=== PATIENT | female | born 1960 | race Caucasian/White ===

== ENCOUNTER 2023-01-20 09:39 | Outpatient (AMB) | payer MEDICARE, MEDICAID, SELFPAY ==
--- NOTE | 2023-01-20 09:44 | HO.NEPHOV_ITS ---
HPI HPI Comments History of Present Illness Details I had the privilege of seeing Nicho in follow-up of her hypertension. She has not been on any medication. She underwent carotid ultrasound as well as calcium score testing of her coronaries. She thinks she has some plaques in the coronary and has narrowing of her carotid artery. She has not seen her mechanical engineering coop with home she has an appointment coming up. She had taken statins in the past but could not tolerate the side effects. Her blood pressure continues to remain fluctuant. She has gained some weight. She was wondering whether taking some CBD is going to help with her blood pressure. She does not have any chest pain, shortness of breath, proximal nocturnal dyspnea, orthopnea, pedal edema, orthostatic symptoms, palpitation, urinary symptoms. She has not been taking any excess sodium in the diet nor any anti-inflammatory medications. She denied any other systemic symptoms. [facility] Medical History (Updated 01/20/23 @ 10:22 by Cameron Clemente MD) Hypertension Surgical History (Updated 01/20/23 @ 09:49 by Minerva Morales MA) Hx of tonsillectomy Family History (Updated 01/20/23 @ 09:50 by Minerva Morales MA) Mother Heart disease Kidney disease Father Cancer Brother Diabetes Social History Alcohol intake: current Comment: On occasion Patient Tobacco Use Status: Never used Tobacco Vital Signs 01/20/23 09:45 01/20/23 10:23 Height 5 ft 2 in Weight 134 lb BMI 24.5 BP 154/94 H 150/90 H Blood Pressure Location Rt brachial Position Sitting Pulse 75 Pulse Source Pulse Oximeter Pulse Oximetry (%) 97 Oxygen Delivery Method Room Air Physical Exam Vital Signs: Last Vital Signs Pulse 75 01/20/23 09:45 BP 154/94 H 01/20/23 09:45 Pulse Ox 97 01/20/23 09:45 Oxygen Delivery Method Room Air 01/20/23 09:45 BMI result Body Mass Index 24.5 Const General: comfortable and no acute distress Orientation/consciousness: patient oriented x3 HEENT Head: Yes normocephalic Mouth: Normal oral and palatal mucosa present Eyes EOM: EOMs intact bilaterally Neck Neck: Yes supple Resp Auscultation: clear to auscultation bilaterally Cardio Jugular venous distension: no JVD Rate: regular rate GI Palpation (GI): Soft to palpation Auscultation: normal bowel sounds General: Yes no CVA tenderness Back/Spine/Pelvis Back: no CVA tenderness Skin General skin exam: no rashes or lesions noted Neuro General: patient oriented x3 and moves all extremities Extrem General: Yes no pedal edema Assessment & Plan Assessment & Plan (1) Hypertension: Code(s): I10 - Essential (primary) hypertension Qualifiers: Hypertension type: unspecified Qualified Code(s): I10 - Essential (primary) hypertension Plan Sara had extensive investigations in the past and was thought to have significant white coat element. She has gained weight. Her repeat blood pressure in the office by me was 150/90 mmHg both arms sitting position. She is going to follow-up with her mechanical engineering coop to talk about carotid ultrasound and calcium scores of her coronary arteries. She is going to work on losing some weight. I have ordered blood work and Doppler of her renal arteries. She may have to start antihypertensive medications at her next visit with me in 3 months if her blood pressure control is not at goal . Time spent retrieving data, patient encounter and documentation 23 minutes. Follow-up given. Orders: Orders US renal doppler Today I10 - Essential (primary) hypertension Electrolytes Today I10 - Essential (primary) hypertension Blood Urea Nitrogen Today I10 - Essential (primary) hypertension Creatinine Today I10 - Essential (primary) hypertension Calcium Today I10 - Essential (primary) hypertension US renal BI Today I10 - Essential (primary) hypertension Coding Level of Care Code Est Pt Level 4 (58766) Diagnoses Hypertension, unspecified type I10 Hypertension type: unspecified Results Reviewed Nephrology Results: No Data to Display
[2023-01-20 09:45] VITALS: BP 154/94; PULSE 75; O2SAT 97; BMI 24.5
[2023-01-20 10:23] VITALS: BP 150/90
== END 2023-01-20 10:18 | disposition home or self-care (01) ==
PROVIDERS: PCP Nurse Practitioner Adult Health; Visit Provider Internal Medicine Nephrology
DX: I10 Essential (primary) hypertension (principal)
CPT/HCPCS: 99214

== ENCOUNTER → 2023-01-20 09:39 | Outpatient (BNVA) | payer MEDICARE, MEDICAID, SELFPAY | PROVIDERS: PCP Nurse Practitioner Adult Health; Visit Provider Internal Medicine Nephrology | DX: I10 Essential (primary) hypertension (principal) | CPT/HCPCS: 99212 ==

== ENCOUNTER 2023-02-24 09:06 | Outpatient (REF) | payer MEDICARE, MEDICAID, SELFPAY ==
--- NOTE | ~2023-02-24 | US_ITS ---
EXAMINATION: ULTRASOUND RENAL WITH DOPPLER CLINICAL INFORMATION: Hypertension. Evaluate for renal artery stenosis. COMPARISON: None. TECHNIQUE: Real-time grayscale, color Doppler, and duplex Doppler evaluation of the kidneys and renal vasculature was performed. FINDINGS: RENAL MEASUREMENTS: Right: 10.0 x 4.1 x 5.4 cm (Sag x AP x TV) Left: 9.8 x 4.4 x 5.2 cm (Sag x AP x TV) The renal parenchyma appears normal. No hydronephrosis or nephrolithiasis. DOPPLER INTERROGATION: AORTA: Mid aorta: 76 cm/sec RIGHT MAIN RENAL ARTERY: Proximal: 128 cm/sec Mid: 276 cm/sec Distal: 184 cm/sec LEFT MAIN RENAL ARTERY: Proximal: 126 cm/sec Mid: 87 cm/sec Distal: 70 cm/sec RENAL-AORTIC RATIO (RAR): Right: 3.6 Left: 1.7 SEGMENTAL RESISTIVE INDICES: Right: 0.57-0.62 Left: 0.64-0.70 RENAL VEINS: Right: Patent with normal waveform. Left: Patent with normal waveform. US/US renal BI IMPRESSION: Elevated velocity in the mid right renal artery with RAR of 3.6 consistent with a greater than 60% stenosis by Doppler criteria. Recommend further evaluation with CTA of the abdomen and pelvis without and with contrast.
--- NOTE | ~2023-02-24 | US_ITS ---
EXAMINATION: ULTRASOUND RENAL WITH DOPPLER CLINICAL INFORMATION: Hypertension. Evaluate for renal artery stenosis. COMPARISON: None. TECHNIQUE: Real-time grayscale, color Doppler, and duplex Doppler evaluation of the kidneys and renal vasculature was performed. FINDINGS: RENAL MEASUREMENTS: Right: 10.0 x 4.1 x 5.4 cm (Sag x AP x TV) Left: 9.8 x 4.4 x 5.2 cm (Sag x AP x TV) The renal parenchyma appears normal. No hydronephrosis or nephrolithiasis. DOPPLER INTERROGATION: AORTA: Mid aorta: 76 cm/sec RIGHT MAIN RENAL ARTERY: Proximal: 128 cm/sec Mid: 276 cm/sec Distal: 184 cm/sec LEFT MAIN RENAL ARTERY: Proximal: 126 cm/sec Mid: 87 cm/sec Distal: 70 cm/sec RENAL-AORTIC RATIO (RAR): Right: 3.6 Left: 1.7 SEGMENTAL RESISTIVE INDICES: Right: 0.57-0.62 Left: 0.64-0.70 RENAL VEINS: Right: Patent with normal waveform. Left: Patent with normal waveform. US/US renal doppler IMPRESSION: Elevated velocity in the mid right renal artery with RAR of 3.6 consistent with a greater than 60% stenosis by Doppler criteria. Recommend further evaluation with CTA of the abdomen and pelvis without and with contrast.
== END 2023-02-24 09:07 | disposition home or self-care (01) ==
LOC: HO.US 09:06
PROVIDERS: PCP Nurse Practitioner Adult Health; Visit Provider Internal Medicine Nephrology
DX: I10 Essential (primary) hypertension (principal)
CPT/HCPCS: 36415; 76775; 80051; 82310; 82565; 84520; 93975

== ENCOUNTER 2023-02-24 09:42 | Outpatient (REF) | payer MEDICARE, MEDICAID, SELFPAY ==
[2023-02-24 10:50] LABS: Anion Gap 11 (12-20); Blood Urea Nitrogen 8 mg/dL (9-16); Calcium 9.6 mg/dL (8.4-10.2); Carbon Dioxide 30 mmol/L (22-29); Chloride 102 mmol/L (96-108); Estimated Glomerular Filt Rate > 60; Potassium 4.1 mmol/L (3.3-5.1); Sodium 139 mmol/L (135-145)
== END 2023-02-24 09:43 | disposition home or self-care (01) ==
LOC: HO.10HDL 09:42
PROVIDERS: Visit Provider Internal Medicine Nephrology
DX: Z13.89 Encounter for screening for other disorder (principal)
CPT/HCPCS: 36415; 80051; 82310; 82565; 84520

== ENCOUNTER → 2023-04-26 12:00 | Outpatient (BNVA) | payer MEDICARE, MEDICAID, SELFPAY | PROVIDERS: PCP Nurse Practitioner Adult Health; Visit Provider Internal Medicine Nephrology | DX: I10 Essential (primary) hypertension (principal) | CPT/HCPCS: 99212 ==

== ENCOUNTER 2024-03-22 12:08 | Outpatient (AMB) | payer MEDICARE, SELFPAY ==
--- NOTE | 2024-03-22 12:26 | HO.NEPHOV ---
Vital Signs 03/22/24 12:28 Height 5 ft 2 in Weight 135 lb 4 oz BMI 24.7 BP 144/80 H Blood Pressure Location Lt brachial Position Sitting Pulse 76 Pulse Source Pulse Oximeter Pulse Oximetry (%) 97 Oxygen Delivery Method Room Air Intake Visit Reasons: Hypertension/ 6 MO FU/ Conf Electroneurodiagnostic Technologist Required: No Accompanied by: Self / Same As Patient Allergies COVID-19 (SARS-CoV-2) vaccine, nora Allergy (Verified 03/22/24 12:28) Unknown morphine Adverse Reaction (Verified 03/22/24 12:28) Unknown HPI Comments Details: I had the privilege of seeing Maureen in follow-up of her hypertension. She has not been on any medication. She underwent carotid ultrasound as well as calcium score testing of her coronaries. She thinks she has some plaques in the coronary and has narrowing of her carotid artery. She had taken statins in the past but could not tolerate the side effects. Her blood pressure is better at home. She does not have any chest pain, shortness of breath, proximal nocturnal dyspnea, orthopnea, pedal edema, orthostatic symptoms, palpitation, urinary symptoms. She has not been taking any excess sodium in the diet nor any anti-inflammatory medications. She denied any other systemic symptoms. [facility] Medical History (Updated 01/20/23 @ 10:22 by Cameron Clemente MD) Hypertension Surgical History Hx of tonsillectomy Family History Mother Heart disease Kidney disease Father Cancer Brother Diabetes Social History Alcohol intake: current Comment: On occasion Patient Tobacco Use Status: Never used Tobacco Review of Systems Const All systems reviewed & are unremarkable except as noted in HPI and below Physical Exam Vital Signs: Last Vital Signs Pulse 76 03/22/24 12:28 BP 144/80 H 03/22/24 12:28 Pulse Ox 97 03/22/24 12:28 Oxygen Delivery Method Room Air 03/22/24 12:28 BMI result Body Mass Index 24.7 Const General: comfortable and no acute distress Orientation/consciousness: patient oriented x3 HEENT Head: Yes normocephalic Mouth: Normal oral and palatal mucosa present Eyes EOM: EOMs intact bilaterally Neck Neck: Yes supple Resp Auscultation: clear to auscultation bilaterally Cardio Jugular venous distension: no JVD Rate: regular rate GI Palpation (GI): Soft to palpation Auscultation: normal bowel sounds General: Yes no CVA tenderness Back/Spine/Pelvis Back: no CVA tenderness Skin General skin exam: no rashes or lesions noted Neuro General: patient oriented x3 and moves all extremities Extrem General: Yes no pedal edema Assessment & Plan Assessment & Plan (1) Hypertension: Code(s): I10 - Essential (primary) hypertension Category: Medical Qualifiers: Hypertension type: unspecified Qualified Code(s): I10 - Essential (primary) hypertension Plan Sara had extensive investigations in the past and was thought to have significant white coat element. Her repeat blood pressure stable. She is going to follow-up with her wire photo operator news to talk about carotid ultrasound and calcium scores of her coronary arteries. She is going to work on losing some weight. Doppler of her renal arteries showed elevated velocity in the mid right renal artery with RAR of 3.6 consistent with a greater than 60% stenosis by Doppler criteria. Further evaluation with CTA of the abdomen and pelvis without and with contrast is planned in one year. She may have to start antihypertensive medications if her blood pressure control is not at goal . Coding Level of Care Code Est Pt Level 4 (96377) Diagnoses Hypertension, unspecified type I10 Hypertension type: unspecified
[2024-03-22 12:28] VITALS: BP 144/80; PULSE 76; O2SAT 97; BMI 24.7
--- OUTSIDE RECORDS SUMMARY | 2024-03-22 12:42 | XMS_ITS | Encounter Summary ---
Author Organization [facility] Address [address] [place] [address] Care Team Providers Care Electrifier Operator Name Role Phone Matheus Mejia Primary Care Provider Encounter Details Date Type Department Care Team (Latest Contact Info) Description 07/31/2018 Abstract [facility] CONVERSIONS Dental, Provider, DDS Social History Tobacco Use Types Packs/Day Years Used Date Smoking Tobacco: Never Assessed Comments Unknown Sex and Gender Information Value Date Recorded Sex Assigned at Not on file Legal Sex Female 8:38 PM EST Gender Identity Female 12/17/2021 8:38 PM EST Sexual Orientation Straight 12/17/2021 8: 38 PM EST documented as of this encounter Plan of Treatment Not on file documented as of this encounter Visit Diagnoses Not on filedocumented in this encounter Care Teams Electrifier Operator Relationship Specialty Start Date End Date Matheus Mejia LLD [address] [place] [id number] PCP - General Dentist 12/03/21 documented as of this encounter
--- OUTSIDE RECORDS SUMMARY | 2024-03-22 12:42 | XMS_ITS | Clinical Summary ---
Author Organization [employer] Address [address] [facility] [address] [place] [address] Care Team Providers Care Well Drill Operator Helper Cable Tool Name Role Phone Matheus Mejia Primary Care Provider [phone] Social History Tobacco Use Types Packs/Day Years Used Date Smoking Tobacco: Never Assessed Comments Unknown Sex and Gender Information Value Date Recorded Sex Assigned at Not on file Legal Sex Female 8:38 PM EST Gender Identity Female 12/17/2021 8:38 PM EST Sexual Orientation Straight 12/17/2021 8: 38 PM EST Plan of Treatment Health Maintenance Due Date Last Done Comments CT Colonography 1958 Colonoscopy 1958 Depression Screening 1958 FIT 1958 FOBT 1958 Sigmoidoscopy 1958 Alcohol/Substance Use Screening 1970 Tobacco Screening 1970 Pneumococcal Vaccine: 50+ Years (1 of 1 - PCV) 01/25/2008 Zoster Vaccines (1 of 2) 01/25/2008 Colorectal Cancer Screening 04/08/2022 FIT DNA/Cologuard 04/08/2022 04/09/2019 COVID-19 Vaccine (3 - 2023-2 5 season) 2023 05/31/2020, 05/09/2020 Influenza Vaccine (#1) 2023 Mammogram 09/07/2024 09/07/2022 Cervical Cancer Screening 01/28/2028 HPV/Cotest 01/28/2028 Pap Smear 01/28/2028 01/27/2023 DTaP/Tdap/Td Vaccines (3 - T d or Tdap) 11/17/2030 11/17/2020, 08/14/2015 RSV Patients and Patients Aged 60 years or older (1 - 1-dose 75+ series) 2033 HIB Vaccines Aged Out No longer eligi ble based on patient's age to complete this topic HPV Vaccines Aged Out No longer eligi ble based on patient's age to complete this topic Hepatitis A Vaccines Aged Out No long er eligible based on patient's age to complete this topic Hepatitis B Vaccines Aged Out No long er eligible based on patient's age to complete this topic IPV Vaccines Aged Out No longer eligi ble based on patient's age to complete this topic Meningococcal Vaccine Aged Out No quique jim eligible based on patient's age to complete this topic RSV under 20 months Aged Out No longe r eligible based on patient's age to complete this topic Rotavirus Vaccines Aged Out No longer eligible based on patient's age to complete this topic Procedures Procedure Name Priority Date/Time Associated Diagnosis Comments PAP SMEAR Routine 01/27/2023 12:00 AM EST HM MAMMOGRAPHY Routine 09/07/2022 from Last 3 Months or Most Recently Relevant to Health Maintenance Results * Pap Smear (01/27/2023 12:00 AM EST) Swab Historical Provider LAB CYTOLOGY ORDERABLES F inal Result [facility] [address] [place] [address] * Mammography (09/07/2022) Mammogram BIRADS 1 Normal, Abnormal, BIRADS 1 , BIRADS 2 Anatomical Region Laterality Modality Other Historical Provider HEALTH MAINTENANCE Final Result from Last 3 Months or Most Recently Relevant to Health Maintenance Care Teams Well Drill Operator Helper Cable Tool Relationship Specialty Start Date End Date Matheus Mejia LLD [address] [place] [id number] PCP - General Dentist 12/03/21
--- OUTSIDE RECORDS SUMMARY | 2024-03-22 12:42 | XMS_ITS | Clinical Summary ---
Author Organization [facility] Address [address] [place] [address] Phone Care Team Providers Care Dialysis Social Worker Name Role Phone Savanna Gipson RICARDO Primary Care Provide r Allergies Active Allergy Reactions Criticality Noted Date Comments Adhesive Tape Rash Low 11/09/2021 Morphine Other (see comments) 08/13/2020 Statins Other (see comments) 02/21/2017 Medications latanoprost (XALATAN) 0.005 % ophthalmic solution Administer 1 drop into both eyes 1 (one) time each day 2 Active Active Problems Problem Noted Date Diagnosed Date Adult attention deficit hyperactivity disorder 0 06/16/2021 Overview (12/21/2021): Last Assessment & Plan: History of ADHD, recently prescribed Adderall. Her initial dose of 1.25 mg ineffective, so she will plan on trying a higher dose and follow-up as needed. Labile hypertension due to being in a clinical e nvironment 08/13/2020 Patient encounter status 03/31/2017 Overview (12/21/2021): Last Assessment & Plan: Generally well female, up-to-date on Pap smear, mammogram, and bone density testing. Cologuard in 2019 normal; repeat in 3 years. Patient declines immunizations; discussed risks versus benefits. Patient is due for Pap smear at the end of the year; she is connected with [facility] gynecology for routine gynecologic care. Advised on healthy diet, regular exercise, and to consume at least 1200 mg Calcium and 2000 iU Vitamin D daily by diet and/or supplementation. Essential hypertension 03/22/2017 Overview (08/13/2020): She states she has been treated with a variety of antihypertensive medications but that she is extremely sensitive to medications and is now being treated with clonidine twice a day. Because she is very sensitive to medications she is concerned about taking any lipid-lowering medications. Blood pressure today is 140/88. Last Assessment & Plan: Stable, off therapies. Normotensive in office today. She monitors her blood pressure regularly, with normotensive readings. Patient has had a lot of side effects to medications in the past, but has noted that if she stays warm her blood pressure tends to always be normal. Continue to monitor at home and follow-up if consistently greater than 140/80. 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 Lin for treatment and discussion of surgical options. Chronic low back pain 09/01/20202021 Overview (05/05/2021): Last Assessment & Plan: Agree with plan for physical therapy referral. Referral placed. Pain in thumb 09/01/2020 12/21/2021 Overview (05/05/2021): Last Assessment & Plan: Chronic thumb pain, with some improvement with recent course of occupational therapy. May consider referral to hand specialist if worsening in the future. Chronic pain 03/09/2019 08/13/2020 Overview (08/13/2020): Last Assessment & Plan: Will do referral to physical therapy for recommendations regarding stretching and exercises. Follow-up as needed. Right upper quadrant pain 03/09/2019 Overview (08/13/2020): Last Assessment & Plan: Episodes of sharp, transient right upper abdominal pain not associated with eating. No red flags on history, although some hardness noted along area of abdominal aortic. Will do further work-up with ultrasound of abdomen and follow-up by phone once results are back. Patient in agreement with plan. Vascular calcification 04/03/201708/13 Overview (08/13/2020): Last Assessment & Plan: By OSH US. -Will obtain Carotid US. Patent foramen ovale 03/31/2017 Overview (08/13/2020): Last Assessment & Plan: Documented as trace by JW in 05 in the setting of [facility]. We discussed that patent foramen ovale is a common finding ( 1 in 3 americans). In rare cases has been associated with stroke in young population. Denies new neurological symptoms. She is instructed to: 1.-No scubadiving. 2.-Aspirin when flying ( she is on daily asa). 3.-Filter IVs. Elevated Lipoprotein(a) 03/22/201709/2020 Overview (08/13/2020): Taylor is a 57-year-old woman with a history of hypertension, enlarged thyroid with thyroid nodule, family history of atherosclerosis self-referred for evaluation of elevated levels of lipoprotein a. She is currently in excellent overall health, is of normal weight, non-smoker, and follows an organic low-fat diet. Her mother had atherosclerosis and hyperlipidemia, her brother had an KS at age 50 and was a smoker. Because her mother had atherosclerosis the patient requested testing for lipoprotein a. Her value returned at 288 putting her in a high risk cohort. She was treated with Lipitor 10 milligrams and stopped this medication after 21 days due to dizziness and muscle cramping. She also complained of confusion and mental status changes which have resolved with discontinuation of the medication Of note, her lipid profile off medication is normal with an HDL of 88 and an LDL of 100. She saw a oncology rep specialist at [facility] and had a carotid ultrasound that reports her being at high risk for coronary artery disease but no evidence of atherosclerotic plaque (?). She states that she has had 2 episodes of chest pain at rest and It was suggested that she have a stress test performed but this was declined due to her concern about the imaging protocol. Physical exam was not carried out today due to the fact that the interview took an hour due to her many questions. Last Assessment & Plan: Off therapies, no stigmata of cardiac disease based on most recent work-up. Overdue for lipid panel testing, will do fasting cholesterol and follow-up by phone once results are back. Continue healthy eating and regular exercise. Follow-up with Dr. Randle of cardiology. Multinodular goiter 03/22/2017 08/14/19 21 Overview (08/13/2020): Patient has a history of a thyroid nodule that was biopsied 15 years ago. Recent outside study demonstrated an enlargement of the gland and a nodule measuring 3.6 cm x 2.9 cm x 1.7 cm. She will make an appointment with the thyroid clinic for further evaluation. Last Assessment & Plan: Stable based. Continue routine follow up with Dr. Mendoza of endocrinology. Immunizations Name Administration Dates Next Due Tdap 11/17/2020,08/14/2015 Family History Medical History Relation Comments Cancer Father lung Hypertension Father Heart disease Mother Hypertension Mother Kidney disease Mother Hypertension Sibling 1 Heart disease Sibling 2 Relation Status Comments Father Mother Alive Sibling 1 Sibling 2 Social History Tobacco Use Types Packs/Day Years Used Date Smoking Tobacco: Never Smokeless Tobacco: Never Tobacco Cessation:Counseling Given: No Alcohol Use Standard Drinks/Week Comments Yes 0 (1 standard drink = 0.6 oz pure alcohol) Alcoholic Drinks/day: Occasional social drink Comments Unknown Sex and Gender Information Value Date Recorded Sex Assigned at Not on file Legal Sex Female 4:49 PM EST Gender Identity Not on file Sexual Orientation Not on file Last Filed Vital Signs Vital Sign Reading Time Taken Comments Blood Pressure 128/70 12/22/2021 1:06 PM EST Pulse 71 12/22/2021 1:06 PM EST Temperature - - Respiratory Rate - - Oxygen Saturation 97% 12/22/2021 1:06 PM EST Inhaled Oxygen Concentration - - Weight 63 kg (138 lb 12.8 oz) 12/22/2021 1:06 PM EST Height 157.5 cm (5' 2 ) 02/19/2020 12:00 PM EST Body Mass Index 25.39 02/19/2020 12:00 PM EST Plan of Treatment Health Maintenance Due Date Last Done Comments Breast Cancer Screening 1958 Pneumococcal Vaccine: 65+ Ye ars (1 of 2 - PCV) 01/25/1964 Colorectal Cancer Screening: Annual FOBT 2007 Colorectal Cancer Screening: Colonoscopy 2007 Colorectal Cancer Screening: Sigmoidoscopy 2007 Influenza Vaccine (#1) 2023 Hepatitis B Vaccine Aged Out No longe r eligible based on patient's age to complete this topic Insurance [place]IC[place]ID [place] Care Teams Dialysis Social Worker Relationship Specialty Start Date End [place] [address] PCP - General Nurse Practitioner 05/05/21
== END 2024-03-22 12:45 | disposition home or self-care (01) ==
PROVIDERS: PCP Nurse Practitioner Adult Health; Visit Provider Internal Medicine Nephrology
DX: I10 Essential (primary) hypertension (principal)
CPT/HCPCS: 99214

== ENCOUNTER → 2024-03-22 12:08 | Outpatient (BNVA) | payer MEDICARE, SELFPAY | PROVIDERS: PCP Nurse Practitioner Adult Health; Visit Provider Internal Medicine Nephrology | DX: I10 Essential (primary) hypertension (principal) | CPT/HCPCS: 99212 ==

== ENCOUNTER 2025-01-31 13:38 | Outpatient (AMB) | payer MEDICARE, SELFPAY ==
[2025-01-31 13:42] VITALS: BP 148/100; PULSE 71; O2SAT 97; BMI 25.4
--- NOTE | 2025-01-31 13:42 | HO.NEPHOV ---
Vital Signs 01/31/25 13:42 Height 5 ft 2 in Weight 139 lb BMI 25.4 BP 148/100 H Blood Pressure Location Lt brachial Position Sitting Pulse 71 Pulse Source Pulse Oximeter Pulse Oximetry (%) 97 Oxygen Delivery Method Room Air Intake Visit Reasons: Hypertension r/s 11/22-LVM Wilderness Guide Required: No Accompanied by: Self / Same As Patient Allergies COVID-19 (SARS-CoV-2) vaccine, nora Allergy (Verified 01/31/25 13:43) Unknown morphine Adverse Reaction (Verified 01/31/25 13:43) Unknown HPI Comments Details: I had the privilege of seeing Maureen in follow-up of her hypertension. She has not been on any medication. She had underwent carotid ultrasound as well as calcium score testing of her coronaries. She thinks she has some plaques in the coronary and has narrowing of her carotid artery. She had taken statins in the past but could not tolerate the side effects. Her blood pressure is better at home. She does not have any chest pain, shortness of breath, proximal nocturnal dyspnea, orthopnea, pedal edema, orthostatic symptoms, palpitation, urinary symptoms. She has not been taking any excess sodium in the diet nor any anti-inflammatory medications. She denied any other systemic symptoms.She was started on losartan by PCP and she stopped it. [facility] Medical History (Updated 01/20/23 @ 10:22 by Cameron Clemente MD) Hypertension Surgical History Hx of tonsillectomy Family History Mother Heart disease Kidney disease Father Cancer Brother Diabetes Social History Alcohol intake: current Comment: On occasion Patient Tobacco Use Status: Never used Tobacco Review of Systems Const All systems reviewed & are unremarkable except as noted in HPI and below Physical Exam Vital Signs: Last Vital Signs Pulse 71 01/31/25 13:42 BP 148/100 H 01/31/25 13:42 Pulse Ox 97 01/31/25 13:42 Oxygen Delivery Method Room Air 01/31/25 13:42 BMI result Body Mass Index 25.4 Const General: comfortable and no acute distress Orientation/consciousness: patient oriented x3 HEENT Head: Yes normocephalic Mouth: Normal oral and palatal mucosa present Eyes EOM: EOMs intact bilaterally Neck Neck: Yes supple Resp Auscultation: clear to auscultation bilaterally Cardio Jugular venous distension: no JVD Rate: regular rate Heart sounds: Murmur heart sound present GI Palpation (GI): Soft to palpation Auscultation: normal bowel sounds General: Yes no CVA tenderness Back/Spine/Pelvis Back: no CVA tenderness Skin General skin exam: no rashes or lesions noted Neuro General: patient oriented x3 and moves all extremities Extrem General: Yes no pedal edema Results Reviewed Nephrology Results: Sodium, (135-145) 139 mmol/L 02/24/23 Potassium, (3.3-5.1) 4.1 mmol/L 02/24/23 Chloride, (96-108) 102 mmol/L 02/24/23 Carbon Dioxide, (22-29) 30 mmol/L H 02/24/23 BUN, (9-16) 8 mg/dL L 02/24/23 Creatinine, (0.5-1.4) 0.87 mg/dL 02/24/23 Calcium, (8.4-10.2) 9.6 mg/dL 02/24/23 Renal US 02/24/23 Assessment & Plan Assessment & Plan (1) Hypertension: Code(s): I10 - Essential (primary) hypertension Category: Medical Qualifiers: Hypertension type: unspecified Qualified Code(s): I10 - Essential (primary) hypertension Plan Sara had extensive investigations in the past and was thought to have significant white coat element. Her repeat blood pressure stable. She is going to work on losing some weight. Doppler of her renal arteries showed elevated velocity in the mid right renal artery with RAR of 3.6 consistent with a greater than 60% stenosis by Doppler criteria. Further evaluation with CTA of the abdomen and pelvis without and with contrast is planned in one year. I started her on lisinopril 2.5 mg daily. If her blood pressure control is not at goal, we may have to increase ACEI . Labs/FU 6 M Orders: Orders Blood Urea Nitrogen 3 Months I10 - Essential (primary) hypertension Electrolytes 3 Months I10 - Essential (primary) hypertension Creatinine 3 Months I10 - Essential (primary) hypertension Medications: New lisinopril 2.5 mg PO DAILY 90 tabs 4RF Coding Level of Care Code Est Pt Level 4 (85071) Diagnoses Hypertension, unspecified type I10 Hypertension type: unspecified
--- OUTSIDE RECORDS SUMMARY | 2025-01-31 13:42 | XMS_ITS | Encounter Summary ---
Author Organization [facility] Address [address] [facility] [address] [place] [address] Phone Care Team Providers Care Medical Clerical Assistant Name Role Phone Savanna Gipson CNP Primary Care Provider Fay Alfonso MD Unavailable [phone] Encounter Details Date Type Department Care Team ([facility] Contact Info) Description 11/22/2023 Telephone [facility] [address] [place] [address] Noe Macias MD, PhD [address] [place] [address] [email or web address] Social History Tobacco Use Types Packs/Day Years Used Date Smoking Tobacco: Never Smokeless Tobacco: Never Alcohol Use Standard Drinks/Week Comments Yes 3 (1 standard drink = 0.6 oz pur e alcohol) Child or Family Care Answer Date Record ed Do you have problems with on e of the following making it difficult for you to work, study, or receive health care? No 07/03/2020 Education Answer Date Recorded Are you interested in more education? Not on jose e 07/04/2022 Are you concerned about learning? Not on file 07/04/2022 No 07/04/2022 No 07/04/2022 Food Answer Date Recorded Within the past 6 months we worried whether our food would run out before we got money to buy more. Never True 07/03/2020 Within the past 6 months the food we bought just didn't last and we didn't have enough money to get more. Never True Residential Stability Answer Date Recor ded What is your housing situation today? I have araceli tello 07/03/2020 How many times have you move d in the past 12 months? Zero (I did not move) 07/03/2020 06 Are you worried that in t he next 2 months, you may not have your own housing to live in? No 07/03/2020 Paying for Meds Answer Date Recorded Do you have trouble paying for medicines? No 07/03/2020 Paying Utility Bills Answer Date Record ed Do you have trouble paying your heating or elect ricity bill? No 07/03/2020 Transportation Answer Date Recorded Has the lack of transportati on kept you from medical appointments or from getting medications? No 07/03/2020 Unemployment Answer Date Recorded Are you currently unemployed or working on a part-time or temporary basis, and looking for work? No 07/03/2020 Digital Access Answer Date Recorded No 06/30/2022 No 06/30/2022 Reliable internet access at home? Not on file 06/30/2022 Device with a working camera? Not on file Intimate Partner Violence Answer Date R ecorded Denied Basic Needs Not on file 09/06/2022 In the past 12 months have y ou been in a relationship with a person who hurts, threatens, or tries to control you? No 09/06/2022 Worried food would run out Not on file 09/06 In the past 12 months have y ou been in a relationship with a person who hurts, threatens, or tries to control you? No 09/06/2022 Comments Unknown Sex and Gender Information Value Date Recorded Sex Assigned at Not on file Legal Sex Female 9:20 PM EDT Gender Identity Not on file Sexual Orientation Not on file documented as of this encounter Plan of Treatment Upcoming Encounters Date Type Department Care Team (Late st Contact Info) Description 02/19/2025 11:30 AM EST Office [facility] [address] [place] [address] [phone] Savanna Gipson, LEAD PRINTER 14 [facility] [address] [place] [address] [email or web address] Yamil Logan, OT [address] [place] [address] [email or web address] documented as of this encounter Visit Diagnoses Not on filedocumented in this encounter Additional Health Concerns Assessment Noted Time PHQ-2 Depression Total Score: 0 09/07/19 23 9:55 AM EDT documented as of this encounter Care Teams Medical Clerical Assistant Relationship Specialty Start Date End Date Savanna Gipson CNP 14 [facility] [address] [place] [address] [email or web address] PCP - General Internal Medicine 03/12/19 Fay Alfonso MD 14 [facility] [address] [place] [address] [email or web address] Insurance Assigned Provider 05/13/23 02/12/24 documented as of this encounter Additional Source Comments The information contained in this document represents components of the legal health record. It is not the complete legal health record.[facility]
--- OUTSIDE RECORDS SUMMARY | 2025-01-31 13:42 | XMS_ITS | Encounter Summary ---
Author Organization [facility] Address [address] [facility] [address] [place] [address] Phone Care Team Providers Care Channeler Insole Name Role Phone Navya Boss MD Unavailable [phone] Cameron Clemente MD Unavailable Madelaine Lizama [employer] OFFICER Primary Care Provider [phone] Savanna Gipson JET OPERATOR Primary Care Provider Fay Alfonso MD Unavailable [phone] Fay Alfonso MD Unavailable [phone] Reason for Referral * Consultation (Within 1 month) - Closed Specialty Diagnoses / Procedures Referred By Contduran t Referred To Contact Cardiology [facility] Cardiology [address] [place] [address] Phone: tel: [address] [address] Phone: tel: Referral ID Status Reason Start Date Expiration Date Visits Re quested Visits Authorized [id number] Closed 04/28/2017 04/28/2018 1 1 Encounter Details Date Type Department Care Team (Late st Contact Info) Description 04/28/2017 Transcribe Orders [facility] Cardiology [address] [place] [address] Unknown, Unknown, Social History Tobacco Use Types Packs/Day Years Used Date Smoking Tobacco: Never Smokeless Tobacco: Never Alcohol Use Standard Drinks/Week Comments No 0 (1 standard drink = 0.6 oz pur e alcohol) Comments Unknown Sex and Gender Information Value Date Recorded Sex Assigned at Not on file Legal Sex Female 9:20 PM EDT Gender Identity Not on file Sexual Orientation Not on file documented as of this encounter Plan of Treatment Upcoming Encounters Date Type Department Care Team (Late st Contact Info) Description 02/19/2025 11:30 AM EST Office [facility] [address] [place] [address] Savanna Gipson CNP 14 [facility] [address] [place] [address] [email or web address] Yamil Lgoan OT [address] [place] [address] [email or web address] Scheduled Referrals Name Type Priority Associated Diagnoses Order Schedule Ambulatory referral to [facility] Cardiology Outpatient Referral Routine Ordered: 04/28/2017 documented as of this encounter Visit Diagnoses Not on filedocumented in this encounter Care Teams Channeler Insole Relationship Specialty Start Date End Date Madelaine Lizama NP [address] [place] [address] [email or web address] PCP - General Internal Medicine 01/22/19 03/11/19 Savanna Gipson CNP [address] [place] [address] [email or web address] PCP - General Internal Medicine 03/12/19 Navya Boss MD Internal Medicine 04/07/17 03/11/19 Cameron Clemente MD Nephrology 04/07/17 03/11/19 Fya Alfonso MD [address] [place] [address] [address] [place] [address] [email or web address] Insurance Assigned Provider 04/12/19 02/13/21 Fay Alfonso MD 14 [facility] [address] [place] [address] [email or web address] Insurance Assigned Provider 05/13/23 02/12/24 documented as of this encounter Additional Source Comments The information contained in this document represents components of the legal health record. It is not the complete legal health record.[facility]
--- OUTSIDE RECORDS SUMMARY | 2025-01-31 13:42 | XMS_ITS | Encounter Summary ---
Author Organization [facility] Address [address] [place] [address] Phone Care Team Providers Care Cloth Tester Quality Name Role Phone Savanna Gipson CNP Primary Care Provider Fay Alfonso MD Unavailable [phone] Encounter Details Date Type Department Care Team ([facility] st Contact Info) Description 09/07/2022 Documentation [facility] 14 [facility] [address] [place] [address] Caryn Caldera [place] Social History Tobacco Use Types Packs/Day Years [...] Office Visit [facility] [address] [place] [address] Savanna Gipson, KIKI 14 [facility] [address] [place] [address] Yamil Logan, OT 4 [place] [address] documented as of this encounter Procedures Procedure Name Priority Date/Time Associated Diagnosis Comments MAMMOGRAPHY Routine 09/07/2022 documented in this encounter Results * MAMMOGRAPHY FOR RESULT ENTRY ONLY (09/07/2022) Mammogram [facility] No abnormaties us Historical Provider HEALTH MAINTENANCE Final Result documented in this encounter Visit Diagnoses Not on filedocumented in this encounter Additional Health Concerns Assessment Noted Time PHQ-2 Depression Total Score: 0 09/07/19 23 9:55 AM EDT documented as of this encounter Care Teams Cloth Tester Quality Relationship Specialty Start Date End Date Savanna Gipson CNP [address] [place] [address] [place] [address] PCP - General Internal Medicine 03/12/19 Fay Alfonso MD [address] [place] [address] [place] [address] [email or web address] Insurance Assigned Provider 05/13/23 02/12/24 documented as of this encounter Additional Source Comments The information contained in this document represents components of the legal health record. It is not the complete legal health record.[facility]
--- OUTSIDE RECORDS SUMMARY | 2025-01-31 13:42 | XMS_ITS | Encounter Summary ---
Author Organization [facility] Address [address] [place] [address] Phone Care Team Providers Care Supervisor Hide House Name Role Phone Savanna Gipson COMPENSATION INTERN Primary Care Provider Fay Alfonso MD Unavailable [phone] Fay Alfonso MD Unavailable Encounter Details Date Type Department Care Team (Late Contact Info) Description 04/01/2019 Ancillary Orders [facility] [address] [facility], [address] [place] [address] Facundo Mendoza MD [address] [place] [address] [address] [place] [address] [email or web address] Thyroid nodule Social History Tobacco Use Types Packs/Day Years Used Date Smoking Tobacco: Never Smokeless Tobacco: Never Alcohol Use Standard Drinks/Week Comments Not Currently 0 (1 standard drink = 0.6 oz pur e alcohol) Comments Unknown Sex and Gender Information Value Date Recorded Sex Assigned at Not on file Legal Sex Female 9:20 PM EDT Gender Identity Not on file Sexual Orientation Not on file documented as of this encounter Plan of Treatment Upcoming Encounters Date Type Department Care Team (Late Contact Info) Description 02/19/2025 11:30 AM EST Office [facility] [address] [place] [address] Savanna Gipson CNP 14 [facility] [address] [place], [place] [phone] Yamil Logan, OT 4 [place] [address] documented as of this encounter Visit Diagnoses Diagnosis Thyroid nodule Nontoxic uninodular goiter documented in this encounter Additional Health Concerns Assessment Noted Time PHQ-2 Depression Total Score: 0 03/08/19 9:45 AM EST documented as of this encounter Care Teams Supervisor Hide House Relationship Specialty Start Date End Date Savanna Gipson CNP 14 [facility] [address] [place] [address] PCP - General Internal Medicine 03/12/19 Fay Alfonso MD [address] [place] [address] Insurance Assigned Provider 04/12/19 02/13/21 Fay Alfonso MD 14 [facility] [address] [place] [address] [email or web address] Insurance Assigned Provider 05/13/23 02/12/24 documented as of this encounter Additional Source Comments The information contained in this document represents components of the legal health record. It is not the complete legal health record.[facility]
--- OUTSIDE RECORDS SUMMARY | 2025-01-31 13:42 | XMS_ITS | Encounter Summary ---
Author Organization [facility] Address [address] [facility] [address] [place] [address] Phone Care Team Providers Care Information Security Consultant Name Role Phone Savanna Gipson CNP Primary Care Provider Fay Alfonso MD Unavailable [phone] Fay Alfonso MD Unavailable [phone] Encounter Details Date Type Department Care Team (Late st Contact Info) Description 07/03/2020 Transcribe Orders [facility] [address] [place] [address] Savanna Gipson CNP 14 [facility] [address] [place] [address] [email or web address] Social History Tobacco Use Types Packs/Day Years [...] Answer Date Recorded Are you interested in help w ith more adult education (for example, completing high school, GED, job training, learning the Uzbek language, technical skills, or developing parenting skills)? No 07/03/2020 Food Answer Date Recorded Within the past [...] basis, and looking for work? No 07/03/2020 Comments Unknown Sex and Gender Information Value Date Recorded Sex Assigned at Not on file Legal Sex Female 9:20 PM EDT Gender Identity Not on file Sexual Orientation Not on file documented as of this encounter Plan of Treatment Upcoming Encounters Date Type Department Care Team (Late st Contact Info) Description 02/19/2025 11:30 AM EST Office Visit [facility] [address] [place] [address] Savanna Gipson CNP [address] [place] [address] Yamil Logan, OT 4 [place] [address] documented as of this encounter Visit Diagnoses Not on filedocumented in this encounter Additional Health Concerns Assessment Noted Time PHQ-2 Depression Total Score: 0 03/08/19 9:45 AM EST documented as of this encounter Care Teams Information Security Consultant Relationship Specialty Start Date End Date Savanna Gipson CNP [address] [place] [address] [place] [address] [email or web address] PCP - General Internal Medicine 03/12/19 Fay Alfonso MD [address] [place] [address] [place] [address] [email or web address] Insurance Assigned Provider 04/12/19 02/13/21 Fay Alfonso MD [address] [place] [address] [place] [address] [email or web address] Insurance Assigned Provider 05/13/23 02/12/24 documented as of this encounter Additional Source Comments The information contained in this document represents components of the legal health record. It is not the complete legal health record.[facility]
--- OUTSIDE RECORDS SUMMARY | 2025-01-31 13:42 | XMS_ITS | Encounter Summary ---
Author Organization [facility] Address [address] [place] [address] [place] [address] Phone Care Team Providers Care Manager Support Services Name Role Phone Navya Boss MD Unavailable [phone] Cameron Clemente MD Unavailable Madelaine Lizama NP Primary Care Provider Savanna Gipson CUSTOMER SOLUTIONS TEAMMATE Primary Care Provider Fay Alfonso MD Unavailable [phone] Fay Alfonso MD Unavailable [phone] Encounter Details Date Type Department Care Team (Late Contact Info) Description 03/08/2019 Ancillary Orders [facility],Outside Imaging [address] [place], [place] [phone] System, Provider Not In, [place] [address] Social History Tobacco Use Types Packs/Day Years [...] Description 02/19/2025 11:30 AM EST Office Visit [facility] [address] [place] [address] [phone] Savanna Gipson, KIKI 14 [facility] [address] [place] [address] Yamil Logan, OT 4 [place] [address] documented as of this encounter Results * Mammogram Outside (No Interpretation) (05/20/2016 12:00 AM EDT) Narrative SYSTEMGENERATED, DOCUMENTATION - 03/08/2019 4:22 PM EST This study is for PACS storage only and not for interpretation. us Provider Not In System PhD IMG OUTSIDE IMAGING W /OUT INTERPRETATION Final Result * Mammogram Outside (No Interpretation) (10/08/2014 12:00 AM EDT) Narrative SYSTEMGENERATED, DOCUMENTATION - 03/08/2019 4:23 PM EST This study is for PACS storage only and not for interpretation. us Provider Not In System PhD IMG OUTSIDE IMAGING W /OUT INTERPRETATION Final Result documented in this encounter Visit Diagnoses Not on filedocumented in this encounter Additional Health Concerns Assessment Noted Time PHQ-2 Depression Total Score: 0 03/08/19 9:45 AM EST documented as of this encounter Care Teams Manager Support Services Relationship Specialty Start Date End Date Madelaine Lizama NP [address] [place] [address] [place] [address] [email or web address] PCP - General Internal Medicine 01/22/19 03/11/19 Savanna Gipson CNP [address] [place] [address] [place] [address] PCP - General Internal Medicine 03/12/19 Navya Boss MD Internal Medicine 04/07/17 03/11/19 Cameron Clemente MD Nephrology 04/07/17 03/11/19 Fay Alfonso MD [address] [place] [address] [place] [address] [email or web address] Insurance Assigned Provider 04/12/19 02/13/21 Fay Alfonso MD 14 [facility] [address] [place] [address] [email or web address] Insurance Assigned Provider 05/13/23 02/12/24 documented as of this encounter Additional Source Comments The information contained in this document represents components of the legal health record. It is not the complete legal health record.[facility]
--- OUTSIDE RECORDS SUMMARY | 2025-01-31 13:42 | XMS_ITS | Encounter Summary ---
Author Organization [facility] Address [address] [facility] [address] [place] [address] Phone Care Team Providers Care Water Carter Name Role Phone Navya Boss MD Unavailable [phone] Cameron Clemente MD Unavailable Madelaine Lizama MUSIC PRODUCER Primary Care Provider [phone] Savanna Gipson BOLT LOADER Primary Care Provider Fay Alfonso MD Unavailable [phone] Fay Alfonso MD Unavailable [phone] Encounter Details Date Type Department Care Team (Latest Contact Info) Description 05/17/2017 Transcribe Orders [facility] [address] [place] [address] Facundo Mendoza MD [address] [place] [address] [address] [place] [address] [email or web address] Essential hypertension, benign (Primary Dx) Social History Tobacco Use Types Packs/Day Years [...] Description 02/19/2025 11:30 AM EST Office Visit [facility] [address] [place], [place] [phone] Savanna Gipson, BOLT LOADER 14 [facility] [address] [place] [address] [email or web address] Yamil Logan, OT [address] [place], [place] [phone] [email or web address] documented as of this encounter Results * Catecholamines, fractionated, 24 hr urine (05/17/2017 9:26 AM EDT) Pathologist [facility] DOPAMINE 127 65 - 400 mcg/24 h [facility] Comment: (NOTE) ADDITIONAL INFORMATION This test was developed and its performance characteristics determined by [facility] in a manner consistent with CLIA requirements. This test has not been cleared or approved by the U.S. Food and Drug Administration. EPINEPHRINE 3.7 <21 mcg/24 h [facility] DR HUNT NOREPINEPHRINE 25 15 - 80 mcg/24 h [facility] TOTAL VOLUME 1,950 mL [facility] COLLECTION DURATION 24 h [facility] Urine (Urine) 05/17/2017 9:2 6 AM EDT 05/17/2017 9:28 AM EDT us Facundo Mendoza MD LAB URINE ORDERABLES Final Result [facility] [address] [place] [address] * Creatinine, 24 hr urine (05/17/2017 9:26 AM EDT) URINE CREATININE 53 mg/dL [facility] CREATININE OUTPUT 1,034 600 - 1,800 mg/total output [facility] Urine (Urine) 05/17/2017 9:2 6 AM EDT 05/17/2017 9:29 AM EDT us Facundo Mendoza MD LAB URINE ORDERABLES Final Result [address] [address] * Metanephrines, 24 hr urine (05/17/2017 9:26 AM EDT) METANEPHRINE 86 mcg/24 h [facility] Comment: (NOTE) REFERENCE VALUE 30-180 (Normotensive) <400 (Hypertensive) TU NORMETANEPHRINE 168 mcg/24 h [facility] MED/PATH SUPERIOR Comment: (NOTE) REFERENCE VALUE 128-484 (Normotensive) <900 (Hypertensive) TU TOTAL METANEPHRINE 254 mcg/24 h [facility] [place] Comment: (NOTE) REFERENCE VALUE 164-588 (Normotensive) <1300 (Hypertensive) TOTAL VOLUME 1,950 mL [facility] Comment: (NOTE) ADDITIONAL INFORMATION This test was developed and its performance characteristics determined by [facility] in a manner consistent with CLIA requirements. This test has not been cleared or approved by the U.S. Food and Drug Administration. COLLECTION DURATION 24 h [facility] MED/PATH SUPERIOR DR GILBERT WALL COMMENT Test component not applicable or not reported. [facility] Urine (Urine) 05/17/2017 9:2 6 AM EDT 05/17/2017 9:28 AM EDT us Facundo Mendoza MD LAB URINE ORDERABLES Final Result [facility] SU[facility]IOR [address] [place] [address] documented in this encounter Visit Diagnoses Diagnosis Essential hypertension, benign- Primary documented in this encounter Care Teams Water Carter Relationship Specialty Start Date End Date Madelaine Lizama, HARRIETT [address] [place] [address] [place] [address] [email or web address] PCP - General Internal Medicine 01/22/19 03/11/19 Savanna Gipson, KIKI [address] [place] [address] [email or web address] PCP - General Internal Medicine 03/12/19 Navya Boss MD Internal Medicine 04/07/17 03/11/19 Cameron Clemente MD Nephrology 04/07/17 03/11/19 Fay Alfonso MD [address] [place] [address] [email or web address] Insurance Assigned Provider 04/12/19 02/13/21 Fay Alfonso MD [address] [place] [address] [email or web address] Insurance Assigned Provider 05/13/23 02/12/24 documented as of this encounter Additional Source Comments The information contained in this document represents components of the legal health record. It is not the complete legal health record.[facility]
--- OUTSIDE RECORDS SUMMARY | 2025-01-31 13:42 | XMS_ITS | Clinical Summary ---
Author Organization [employer] Address [address] [place] [address] Care Team Providers Care Ep Specialist Name Role Phone Matheus Mejia DMD Primary Care Provider Unajose ilsophie Social History Tobacco Use Types Packs/Day Years [...] Colonoscopy 1958 Depression Screening 1958 FIT 1958 Sigmoidoscopy 1958 Alcohol/Substance Use Screening 1970 Tobacco Screening 1970 Pneumococcal Vaccine: 50+ Years (1 of 1 - PCV) 01/25/2008 Zoster Vaccines (1 of 2) 01/25/2008 FOBT 05/24/2023 05/23/2022, 04/09/2019 Mammogram 09/07/2024 09/07/2022 COVID-19 Vaccine (3 - 2024-2 6 season) 2024 05/31/2020, 05/09/2020 Influenza Vaccine (#1) 2024 Colorectal Cancer Screening 05/23/2025 FIT DNA/Cologuard 05/23/2025 05/23/2022, 04/09/2019 HPV/Cotest 01/28/2028 Pap Smear 01/28/2028 01/27/2023 DTaP/Tdap/Td [...] patient's age to complete this topic Meningococcal B Vaccine Aged Out No l onger eligible based on patient's age to complete [...] PAP SMEAR Routine 01/27/2023 12:00 AM EST MAMMOGRAPHY Routine 09/07/2022 from Last 3 Months or Most Recently Relevant to Health Maintenance Results * Pap Smear (01/27/2023 12:00 AM EST) Swab Historical Provider LAB CYTOLOGY ORDERABLES F inal Result [facility] [address] [place] [address] * Mammography (09/07/2022) Mammogram BIRADS 1 Normal, Abnormal, BIRADS 1 , BIRADS 2 Anatomical Region Laterality Modality Other us Historical Provider HEALTH MAINTENANCE Final Result from Last 3 Months or Most Recently Relevant to Health Maintenance Care Teams Ep Specialist Relationship Specialty Start Date End Date Matheus Mejia DMD PCP - General Dentist 12/03/21
--- OUTSIDE RECORDS SUMMARY | 2025-01-31 13:42 | XMS_ITS | Encounter Summary ---
Author Organization [facility] Address [address] [place] [address] Phone Care Team Providers Care Blind Eyeletter Name Role Phone Navya Boss MD Unavailable [phone] Cameron Clemente MD Unavailable Madelaine Lizama CITIZENSHIP INSTRUCTOR Primary Care Provider [phone] Savanna Gipson TRUANT OFFICER Primary Care Provider Fay Alfonso MD Unavailable [phone] Fay Alfonso MD Unavailable Reason for Referral * MRI/CAT Scan - Closed Specialty Diagnoses / Procedures Referred By Clement dumont Referred To Contact Radiology Diagnoses Thyroid nodule Procedures US 3D Reconstruction Thyroid Facundo Mendoza MD Phone: tel: fax: [email or web address]:[email or web address] Referral ID Status Reason Start Date Expiration Date Visits Re quested Visits Authorized [id number] Closed 04/23/2018 04/23/2019 1 1 Encounter Details Date Type Department Care Team (Late st Contact Info) Description 04/23/2018 Ancillary Orders [facility] [address], [address] [place] [address] Facundo Mendoza MD [address] [place] [address] [address] [place] [address] [email or web address] Thyroid nodule Social History Tobacco Use Types Packs/Day Years Used Date Smoking Tobacco: Never Smokeless Tobacco: Never Alcohol Use Standard Drinks/Week Comments Yes 1 (1 standard drink = 0.6 oz pur [...] Office [facility] [address] [place] [address] Savanna Gipson, TRUANT OFFICER 14 [facility] [address] [place] [address] Yamil Logan, OT [address] [place] [address] documented as of this encounter Results * US 3D Reconstruction Thyroid (04/25/2018 12:04 PM EDT) Anatomical Region Laterality Modality Neck Ultrasound 04/25/2018 2:35 PM EDT Impressions 04/25/2018 5:41 PM EDT Bilateral thyroid nodules, with right-sided nodule sampled on 05/01/2017. Narrative 04/25/2018 5:41 PM EDT US THYROID GLAND, US 3D RECONSTRUCTION THYROID TECHNIQUE: Ultrasound of the thyroid. 3D reconstructions were created on an independent workstation and reviewed. COMPARISON: US THYROID BIOPSY 05/01/2017. No other comparisons available. FINDINGS: Right Thyroid: The right lobe measures 59 mm in sagittal dimension. Heterogeneous solid nodule replacing much of the mid to lower pole measures 36 x 25 x 15 mm. No microcalcifications. Well marginated. This nodule was sampled on 05/01/2017, returning benign pathology. No right sided adenopathy is detected. Left Thyroid: The left lobe measures 38 mm in sagittal dimension. 8 x 6 x 5 mm hypoechoic predominantly solid nodule noted along the posterior aspect of the mid gland. No microcalcifications. Well marginated. Wider than tall. No left sided adenopathy is detected. Procedure Note Tia Finn MD - 04/25/2018 US THYROID GLAND, US 3D RECONSTRUCTION THYROID TECHNIQUE: Ultrasound of the thyroid. 3D reconstructions were created ariane independent workstation and reviewed. COMPARISON: US THYROID BIOPSY 05/01/2017. No other comparisons available. FINDINGS: Right Thyroid: The right lobe measures 59 mm in sagittal dimension. Heterogeneous solid nodule replacing much of the mid to lower polemeasures 36 x 25 x 15 mm. No microcalcifications. Well marginated. This nodule wassampled on 05/01/2017, returning benign pathology. No right sided adenopathy is detected. Left Thyroid: The left lobe measures 38 mm in sagittal dimension. 8 x 6 x 5 mm hypoechoic predominantly solid nodule noted along theposterior aspect of the mid gland. No microcalcifications. Well marginated. Widerthan tall. No left sided adenopathy is detected. IMPRESSION: Bilateral thyroid nodules, with right-sided nodule sampled on 05/01/2017. us Facundo Mendoza MD IMG US THYROID Final Resul t documented in this encounter Visit Diagnoses Diagnosis Thyroid nodule Nontoxic uninodular goiter Thyroid nodule Nontoxic uninodular goiter documented in this encounter Care Teams Blind Eyeletter Relationship Specialty Start Date End Date Madelaine Lizama NP [address] [place] [address] [place] [address] PCP - General Internal Medicine 01/22/19 03/11/19 Savanna Gipson, KIKI [address] [place] [address] [place] [address] PCP - General Internal Medicine 03/12/19 Navya Boss MD Internal Medicine 04/07/17 03/11/19 Cameron Clemente MD Nephrology 04/07/17 03/11/19 Fay Alfonso MD [address] [place] [address] [place] [address] [email or web address] Insurance Assigned Provider 04/12/19 02/13/21 Fay Alfonso MD [address] [place] [address] [place] [address] [email or web address] Insurance Assigned Provider 05/13/23 02/12/24 documented as of this encounter Additional Source Comments The information contained in this document represents components of the legal health record. It is not the complete legal health record.[facility]
--- OUTSIDE RECORDS SUMMARY | 2025-01-31 13:42 | XMS_ITS | Encounter Summary ---
Author Organization [facility] Address [address] [place] [address] Phone Care Team Providers Care Radiography Technician Name Role Phone Shi Gipsonanna Laverne SWANSON Primary Care Provider Fay Aflonso MD Unavailable [phone] Encounter Details Date Type Department Care Team ([facility] Contact Info) Description 11/23/[address], [facility] [place] [address], [address] [place] [address] Social History Tobacco Use Types Packs/Day Years [...] your housing situation today? I have araceli sing 07/03/2020 How many times have you move [...] Office Visit [facility] [address] [place] [address] [phone] Savanna Gipson, KIKI [address] [facility] [address] [place], [place] [phone] Yamil Logan, OT [address] [place], [place] [phone] documented as of this encounter Visit Diagnoses Not on filedocumented in this encounter Additional Health Concerns Assessment Noted Time PHQ-2 Depression Total Score: 0 09/07/19 23 9:55 AM EDT documented as of this encounter Care Teams Radiography Technician Relationship Specialty Start Date End Date Savanna Gipson CNP 14 [facility] [address] [place] [address] PCP - General Internal Medicine 03/12/19 Fay Alfonso MD 14 [facility] [address] [place] [address] Insurance Assigned Provider 05/13/23 02/12/24 documented as of this encounter Additional Source Comments The information contained in this document represents components of the legal health record. It is not the complete legal health record.[facility]
--- OUTSIDE RECORDS SUMMARY | 2025-01-31 13:42 | XMS_ITS | Clinical Summary ---
Author Organization [facility] Address [address] [place] [address] Phone Care Team Providers Care Examination Scorer Name Role Phone Savanna Gipson RICARDO Primary [...] of the year; she is connected with [facility] gynecology for routine gynecologic care. Advised [...] atherosclerosis and hyperlipidemia, her brother had an PA at age 50 and was a smoker. [...] an LDL of 100. She saw a departure clerk at [facility] and had a carotid ultrasound that [...] up with Dr. Mendoza of endocrinology. Immunizations Immunization Administration Dates Next Due Tdap 11/17/2020,08/14/2015 Family [...] Comments Breast Cancer Screening 1958 Pneumococcal Vaccine: 50+ Ye ars (1 of 2 - PCV) 1977 Colorectal Cancer Screening: Annual FOBT 2007 Colorectal Cancer Screening: Colonoscopy 2007 Colorectal Cancer Screening: Sigmoidoscopy 2007 Influenza Vaccine (#1) 2024 Hepatitis B Vaccine Aged Out No longe r eligible based on patient's age to complete this topic Insurance Medicare Medicaid [place] Medicare Medicaid [place] Care Teams Examination Scorer Relationship Specialty Start Date End Date Sav[place] [address] PCP - General Nurse Practitioner 05/05/21
--- OUTSIDE RECORDS SUMMARY | 2025-01-31 13:42 | XMS_ITS | Encounter Summary ---
Author Organization [facility] Address [address] [address] [facility] [address] [place] [address] Phone Care Team Providers Care Marina Porter Name Role Phone Navya Boss MD Unavailable [phone] Cameron Clemente MD Unavailable Madelaine Lizama METALLOGRAPHER Primary Care Provider [phone] Savanna Gipson CNP Primary Care Provider Fay Alfonso MD Unavailable [phone] Fay Alfonso MD Unavailable [phone] Reason for Referral * Physical Therapy (Routine) - Closed Specialty Diagnoses / Procedures Referred By Clement dumont Referred To Contact Physical Therapy Diagnoses bilateral knee pain Procedures physicial therapy new patient Madelaine Lizama NP Phone: tel: fax: [email or web address]:[email or web address] [address] [place] [address] Phone: tel: Referral ID Status Reason Start Date Expiration Date Visits Re quested Visits Authorized [id number] Closed 12/23/2016 02/05/2018 99 99 Encounter Details Date Type Department Care Team (Latest Contact Info) Description 12/23/2016 Transcribe Orders [facility] [address] [place] [address] Madelaine Lizama NP 14 [facility] [address] [place] [address] [email or web address] Encounter for rehabilitation (Primary Dx) Social History Tobacco Use Types Packs/Day Years Used Date Smoking Tobacco: Never Alcohol Use Standard Drinks/Week Comments [...] Description 02/19/2025 11:30 AM EST Office Visit [facility] [address] [place] [address] Savanna Gipson CNP [address] [place] [address] Yamil Logan, OT [address] [place] [address] documented as of this encounter Procedures Procedure Name Priority Date/Time Associated Diagnosis Comments AMB REFERRAL TO [facility] PHYSICAL THERAPY Routine 12/23/2016 2:30 PM EST Encounter for rehabilitation documented in this encounter Results * Ambulatory referral to [facility] Physical Therapy (12/23/2016 2:30 PM EST) Madelaine Lizama NP AMB [facility] REFERRALS Final Re sult documented in this encounter Visit Diagnoses Diagnosis Encounter for rehabilitation- Primary documented in this encounter Care Teams Marina Porter Relationship Specialty Start Date End Date Madelaine Lizama NP [address] [place] [address] [place] [address] PCP - General Internal Medicine 01/22/19 03/11/19 Savanna Gipson CNP 14 [facility] [address] [place] [address] [email or web address] PCP - General Internal Medicine 03/12/19 Navya Boss MD Internal Medicine 04/07/17 03/11/19 Cameron Clemente MD Nephrology 04/07/17 03/11/19 Fay Alfonso MD [address] [place] [address] [address] [place] [address] [email or web address] Insurance Assigned Provider 04/12/19 02/13/21 Fay Alfonso MD [address] [place] [address] [place] [address] [email or web address] Insurance Assigned Provider 05/13/23 02/12/24 documented as of this encounter Additional Source Comments The information contained in this document represents components of the legal health record. It is not the complete legal health record.[facility]
--- OUTSIDE RECORDS SUMMARY | 2025-01-31 13:42 | XMS_ITS | Clinical Summary ---
Author Organization [facility] Address [address] [facility] [address] [place] [phone] Phone Care Team Providers Care Tile Installer Name Role Phone LeonelaShiTyrese Laverne VIOLIN REPAIRER Primary Care Provider Allergies Active Allergy Reactions Criticality Noted Date Comments Adhesive Rash Low 11/09/2021 Morphine Other (See Comments) 08/13/2020 Other Hives 01/25/2021 Pfizer Vaccine Vjozvfm-Ano-Som Reductase Inhibitors Musculoskeletal Pain,Dizziness 02/21/2017 Medications therapeutic multivitamin tablet Take 1 tablet by mouth daily. Three times weekly Active latanoprost (XALATAN) 0.005 % ophthalmic solution 1 drop. 2 Active losartan (COZAAR) 25 MG tabletIndications :Essential hypertension Take 1 tablet (25 mg total) by mouth daily. 30 tablet 1 5 Active doxepin (SILENOR) 3 mg tabletIndications :Difficulty sleeping Take 1 tablet (3 mg total) by mouth nightly at bedtime. 30 tablet 5 Active Active Problems Problem Noted Date Diagnosed Date Adult attention deficit disorder 06/16/2021 Assessment & Plan (11/27/2024 7:23 PM EDT): History of ADHD, with Adderall as needed. Very minimal use of Adderall. Assessment & Plan (09/06/2022 10:26 AM EDT): History of ADHD, with Adderall as needed. Very minimal use of Adderall. Assessment & Plan (09/03/2021 9:58 AM EDT): History of ADHD, recently prescribed Adderall. Her initial dose of 1.25 mg ineffective, so she will plan on trying a higher dose and follow-up as needed. Assessment & Plan (06/16/2021 8:37 AM EDT): History of ADD, for which patient was on Adderall many years ago. ASR SV1.1 reviewed, with an elevated result of 11. Will start Adderall 5 mg twice daily as needed. Patient instructed on medication use, side effects, and adverse effects. Advised patient to monitor blood pressures at home and call if readings are consistently >140/90. Will f/u in 08/2021 with annual wellness exam. Pt verbalizes understanding and in agreement with plan. Chronic angle-closure glaucoma of both eyes, mil d stage 09/01/2020 Assessment & Plan (11/27/2024 7:23 PM EDT): Stable with Xalatan eyedrops. Continue current therapies and follow-up with Dr. Lin of ophthalmology. Assessment & Plan (09/06/2022 10:26 AM EDT): Stable with Xalatan eyedrops. Continue current therapies and follow-up with Dr. Lin of ophthalmology. Assessment & Plan (09/03/2021 9:58 AM EDT): Stable with Xalatan eyedrops. Continue current therapies and follow-up with Dr. Lin of ophthalmology. Assessment & Plan (09/01/2020 6:16 PM EDT): Continue follow up with Dr. Lin for treatment and discussion of surgical options. Encounter for Medicare annual wellness exam 03/10 Assessment & Plan (11/27/2024 7:24 PM EDT): Generally well female, up-to-date on colon cancer screening, pap smear, and mammogram. Patient declines immunizations; discussed risks versus benefits. Bone density testing scheduled for 01/2025. Advised on healthy diet, regular exercise, and to consume at least 1200 mg Calcium and 2000 iU Vitamin D daily by diet and/or supplementation. Assessment & Plan (09/06/2022 10:27 AM EDT): Generally well female, up-to-date on colon cancer screening, bone density testing, and mammogram. Patient declines immunizations; discussed risks versus benefits. Patient is due for Pap smear; she is connected with [facility] gynecology for routine gynecologic care. Advised on healthy diet, regular exercise, and to consume at least 1200 mg Calcium and 2000 iU Vitamin D daily by diet and/or supplementation. Assessment & Plan (09/03/2021 9:57 AM EDT): Generally well female, up-to-date on Pap smear, mammogram, and bone density testing. Cologuard in 2019 normal; repeat in 3 years. Patient declines immunizations; discussed risks versus benefits. Patient is due for Pap smear at the end of the year; she is connected with [facility] gynecology for routine gynecologic care. Advised on healthy diet, regular exercise, and to consume at least 1200 mg Calcium and 2000 iU Vitamin D daily by diet and/or supplementation. Assessment & Plan (09/01/2020 6:14 PM EDT): Generally well female, up-to-date on Pap smear and bone density testing. Cologuard in 2019 normal; repeat in 3 years. Patient declines immunizations; discussed risks versus benefits. Patient is also overdue for mammogram, which she is planning to do this fall. Follow-up in 1 year for annual wellness exam or sooner as needed. Assessment & Plan (03/09/2019 9:59 AM EST): Generally well female, up-to-date on Pap smear and bone density testing. She declines further colonoscopies, with an FOBT in 2018 that was negative. Would recommend Cologuard testing, but encourage patient to call her insurance company to ensure that it would be covered prior to ordering test. Patient is also overdue for mammogram, order entered and signed. She declines any immunizations. Follow-up in 1 year for annual wellness exam or sooner as needed. Assessment & Plan (04/03/2017 8:51 AM EST): CRFs include hypertension, elevated lipoprotein a and Fam hx of early CAD ( brother, CT at age 50). She has adequate BMI with no history of diabetes mellitus, hyperlipidemia, or smoking. Patent foramen ovale 03/31/2017 Assessment & Plan (04/03/2017 8:50 AM EST): Documented as trace by JW in 05 in the setting of [facility]. We discussed that patent foramen ovale is a common finding ( 1 in 3 americans). In rare cases has been associated with stroke in young population. Denies new neurological symptoms. She is instructed to: 1.-No scubadiving. 2.-Aspirin when flying ( she is on daily asa). 3.-Filter IVs. Elevated lipoprotein(a) 03/22/2017 Overview (03/22/2017): Taylor is a 57-year-old woman with a history of hypertension, enlarged thyroid with thyroid nodule, family history of atherosclerosis self-referred for evaluation of elevated levels of lipoprotein a. She is currently in excellent overall health, is of normal weight, non-smoker, and follows an organic low-fat diet. Her mother had atherosclerosis and hyperlipidemia, her brother had an CT at age 50 and was a smoker. [...] an LDL of 100. She saw a assistant to the director at [facility] cardiology [facility] and had a carotid ultrasound that [...] an hour due to her many questions. Assessment & Plan (11/27/2024 7:23 PM EDT): Patient managing cholesterol with diet and exercise. She would like to update her Cardio IQ testing in a few months, order placed. Assessment & Plan (09/06/2022 10:25 AM EDT): Patient managing cholesterol with diet and exercise. She will plan on checking her lipid panel in the fall and f/u with cardiology as planned. Assessment & Plan (09/03/2021 9:59 AM EDT): Patient managing cholesterol with diet and exercise. She will plan on checking her lipid panel in the fall and f/u with cardiology as planned. Assessment & Plan (09/01/2020 6:16 PM EDT): Will check lipid panel at outpatient lab. F/u with cardiology as planned. Assessment & Plan (03/09/2019 9:56 AM EST): Off therapies, no stigmata of cardiac disease based on most recent work-up. Overdue for lipid panel testing, will do fasting cholesterol and follow-up by phone once results are back. Continue healthy eating and regular exercise. Follow-up with Dr. Randle of cardiology. Assessment & Plan (11/08/2017 10:26 AM EDT): Stable on current therapies, without evidence of overt cardiac disease based on recent work up by cardiology. Continue Niacin. F/u with Dr. Randle of cardiology as scheduled. Assessment & Plan (04/03/2017 8:56 AM EST): At 288. LDL of 100 mg/dl. -we discussed that the treatment is statins and to lower LDL as much as possible. Niacin was used in the past. We do not advocate it at this time due to cardiac adverse effects with the drug. -Since she had SE to Atorvastatin . Will try Rosuvastatin. -Check FLP in 6 wks. -Continue low dose asa. Assessment & Plan (03/22/2017 4:15 PM EST): Sara is a 57-year-old woman with an excellent lipid profile. Her risk for coronary disease includes an elevated level of lipoprotein a and a family history of coronary disease. Of note her mother had a history of hyperlipidemia and her brother was a smoker. She is currently on a baby aspirin a day and her blood pressure is well controlled. With an LDL of 100 and an HDL of 88, I do not feel that she needs to be treated with statin therapy unless it is demonstrated by stress test or accurate carotid ultrasound that she has atherosclerosis. She is not enthusiastic about being treated with a statin. She wishes to be referred to cardiology at [facility] [place] for repeat studies. If an accurate carotid study is normal and a non-imaging stress test is negative, she could be treated with on a baby aspirin a day. Her family history may not be relevant in that her mother had a history of hyperlipidemia which the patient does not. At her request I have made a referral to cardiology and would be happy to see her back in the lipid clinic in the future once she has completed her evaluation. Multinodular goiter 03/22/2017 Overview (03/22/2017): Patient has a history of a thyroid nodule that was biopsied 15 years ago. Recent outside study demonstrated an enlargement of the gland and a nodule measuring 3.6 cm x 2.9 cm x 1.7 cm. She will make an appointment with the thyroid clinic for further evaluation. Assessment & Plan (11/27/2024 7:23 PM EDT): Stable on current therapies. Patient has had multiple FNA which were benign. Repeat thyroid ultrasound in 2025. Assessment & Plan (09/06/2022 10:26 AM EDT): Stable on current therapies. Will recheck thyroid ultrasound this fall, with routine monitoring as recommended by radiology criteria. Assessment & Plan (09/03/2021 9:58 AM EDT): Stable on current therapies, monitored by endocrinology. Assessment & Plan (09/01/2020 6:17 PM EDT): Will check TSH with upcoming blood work. Routine monitoring by endocrinology. Assessment & Plan (03/09/2019 9:55 AM EST): Stable based. Continue routine follow up with Dr. Mendoza of endocrinology. Assessment & Plan (11/08/2017 10:14 AM EDT): Stable based on recent biopsy. Continue routine follow up with Dr. Mendoza of endocrinology. Essential hypertension 03/22/2017 Overview (03/22/2017): She states she has been treated with a variety of antihypertensive medications but that she is extremely sensitive to medications and is now being treated with clonidine twice a day. Because she is very sensitive to medications she is concerned about taking any lipid-lowering medications. Blood pressure today is 140/88. Assessment & Plan (11/27/2024 7:22 PM EDT): Patient has a long history of borderline hypertension, which she has been trying to manage with lifestyle changes. She has been under tremendous stress over the past 6 weeks and been noticing highly elevated readings at home. Will start losartan 25 mg daily; patient instructed on use, side effects, and adverse effects. Patient will continue to monitor blood pressures at home and f/u in 6 weeks for reevaluation. Patient advised to get BMP in around 3 weeks. Patient verbalizes understanding and in agreement with plan. Assessment & Plan (09/06/2022 10:25 AM EDT): Patient continues to work on nonpharmacologic measures to decrease blood pressure, with fairly stable blood pressure readings. Follow-up with cardiology and nephrology as scheduled. Assessment & Plan (09/03/2021 9:59 AM EDT): Patient continues to work on nonpharmacologic measures to decrease blood pressure. Slightly elevated in office today. Follow-up with cardiology and nephrology as scheduled. Assessment & Plan (06/16/2021 8:38 AM EDT): As above. Continue to work on non-pharmacologic interventions for lowering blood pressure. Monitor at home. F/u with nephrology as planned. Assessment & Plan (09/01/2020 6:17 PM EDT): Stable, normotensive in office today. Assessment & Plan (03/09/2019 9:54 AM EST): Stable, off therapies. Normotensive in office today. She monitors her blood pressure regularly, with normotensive readings. Patient has had a lot of side effects to medications in the past, but has noted that if she stays warm her blood pressure tends to always be normal. Continue to monitor at home and follow-up if consistently greater than 140/80. Assessment & Plan (11/08/2017 10:24 AM EDT): Stable, off medications. F/u with Dr. Clemente or nephrology as scheduled. Assessment & Plan (04/03/2017 8:47 AM EST): Elevated BP. -Since she has labile HTN, will try BB/alpaB. -Trial of low dose Labetalol. -Obtain OMRON and keep BP log. Resolved Problems Problem Noted Date Diagnosed Date Resolved Date Balance disorder 09/06/2022 11/27/2024 Assessment & Plan (09/06/2022 10:27 AM EDT): Some subtle balance issues and abnormal posture. Referral placed to occupational therapy for evaluation and treatment. Chronic thumb pain, bilateral 09/01/2020 09/06/2022 Assessment & Plan (09/03/2021 9:57 AM EDT): Related to osteoarthritis. Patient has had improvement in her pain with use of MetaGrip supports. She will follow-up with hand specialist as needed. Assessment & Plan (09/01/2020 6:15 PM EDT): Chronic thumb pain, with some improvement with recent course of occupational therapy. May consider referral to hand specialist if worsening in the future. Chronic bilateral low back p ain without sciatica 09/01/2020 09/03/2021 Assessment & Plan (09/01/2020 6:15 PM EDT): Agree with plan for physical therapy referral. Referral placed. History of dental problems 03/09/2019 0 09/01/2020 Assessment & Plan (03/09/2019 9:59 AM EST): Recent difficulty with cracked tooth, resulting in dental infection, with some ongoing issues. Follow-up with valet attendant as scheduled. Would agree with seeing new dentist for second opinion. Right upper quadrant abdominal pain 03/09/2019 09/01/2020 Assessment & Plan (03/09/2019 9:58 AM EST): Episodes of sharp, transient right upper abdominal pain not associated with eating. No red flags on history, although some hardness noted along area of abdominal aortic. Will do further work-up with ultrasound of abdomen and follow-up by phone once results are back. Patient in agreement with plan. Bilateral hip pain 02/16/2018 0 Assessment & Plan (02/16/2018 3:48 PM EST): Low grade bilateral hip pain following extended periods of walking. ?related to footwear. Encouraged pt to go to [employer]'s footwear for shoe inserts that could be helpful for hip pain. If not improving in 2-3 weeks with this therapy, call office and we will do referral for PT. Pt verbalizes understanding and in agreement with plan. Ocular migraine 11/08/2017 03/09/2019 Assessment & Plan (11/08/2017 10:24 AM EDT): Stable, off medication. Monitor and f/u for worsening migraines. Dyspnea on exertion 11/08/2017 03/09/19 20 Assessment & Plan (11/08/2017 10:24 AM EDT): Improving with more regular exercise. Cardiac etiology ruled out by cardiology. F/u if worsening, may consider PFTs. Pt verbalizes understanding and in agreement with plan. Screening for STD (sexually transmitted disease) 11/08/2017 11/08/2017 Assessment & Plan (11/08/2017 10:35 AM EDT): Will check full panel of blood work today. Carotid artery calcification 04/03/2017 09/01/2020 Assessment & Plan (04/03/2017 8:53 AM EST): By OSH US. -Will obtain Carotid US. Encounters Date Type Department Care Team Description 01/23/2025 9:[address] [facility] Support [address] [place] [address] Tiffani Abel FNP Difficulty sleeping (Primary Dx) 01/15/2025 3:15 PM EST - 01/15/2025 11:59 PM EST Hospital Encounter [facility], Bone Density - [address] [address] Tyrese Venegas CNP Discharge Disposition: Home or Self Care 11/27/2024 5:06 PM EDT - 11/27/2024 11:59 PM EDT Hospital Encounter [facility] [address] [address] Tyrese Venegas CNP Discharge Disposition: Home or Self Care 11/27/2024 4:00 PM EDT Office Visit [facility] [address] [place] [address] [place] [id number] Tyrese Venegas CNP Encounter for Medicare annual wellness exam (Primary Dx); Multinodular goiter; Essential hypertension; Elevated lipoprotein(a); Chronic angle-closure glaucoma of both eyes, mild stage; Adult attention deficit disorder from Last 3 Months Immunizations Immunization Administration Dates Next Due COVID-19 (Pre-11/28) Pfizer Vaccine, mRNA, PF ,05/09/2020 Tdap 11/17/2020,08/14/2015 Family History Medical History Relation Comments Arthritis Brother 1 Early CAD Brother 1 Heart attack Brother 1 Hyperlipidemia Brother 1 Hypertension Brother 1 Diabetes Brother 2 Hyperlipidemia Brother 2 Hypertension Brother 2 Obesity Daughter 1 Other Daughter 2 Post COVID syndr ome No Known Problems Daughter 3 Lung cancer Father smoker Stroke Maternal Grandmother Arthritis Mother Coronary artery disease Mother Hyperlipidemia Mother Hypertension Mother Kidney disease Mother Glaucoma Paternal Uncle Diabetes Sister Hyperlipidemia Sister Hypertension Sister Obesity Sister Blindness Neg Hx Macular degeneration Neg Hx Skin cancer Neg Hx Relation Status Comments Brother 1 Alive Brother 2 Alive Daughter 1 Alive Daughter 2 Alive Daughter 3 Alive Father Maternal Grandmother Mother Alive Paternal Uncle Sister Alive Social History Tobacco Use Types Packs/Day Years Used Date Smoking Tobacco: Never Smokeless Tobacco: Never Tobacco Cessation:Counseling Given: Not Answered Alcohol Use Standard Drinks/Week Comments Yes 3 [...] is your housing situation today? I have aracelidarell tello 07/03/2020 How many times have you [...] ecorded Denied Basic Needs Not on file 11/27/2024 In the past 12 months have y ou been in a relationship with a person who hurts, threatens, or tries to control you? No 11/27/2024 Worried food would run out Not on file 11/27 In the past 12 months have y ou been in a relationship with a person who hurts, threatens, or tries to control you? No 11/27/2024 Comments Unknown Sex and Gender Information Value Date Recorded Sex Assigned at Not on file Legal Sex Female 9:20 PM EDT Gender Identity Not on file Sexual Orientation Not on file Last Filed Vital Signs Vital Sign Reading Time Taken Comments Blood Pressure 178/92 11/27/2024 4:06 PM EDT Pulse 67 11/27/2024 4:06 PM EDT Temperature 36.8 C (98.3 F) 05/26/2023 3:43 PM EDT Respiratory Rate 14 10/26/2021 11:27 AM EDT Oxygen Saturation 97% 11/27/2024 4:06 PM EDT Inhaled Oxygen Concentration - - Weight 62.4 kg (137 lb 9.6 oz) 11/27/2024 4:06 P M EDT Height 156 cm (5' 1.42 ) 11/27/2024 4:06 PM EDT Body Mass Index 25.65 11/27/2024 4:06 PM EDT Plan of Treatment Upcoming Encounters Date Type Department Care Team (Late st Contact Info) Description 02/19/2025 11:30 AM EST [facility] [address] [place] [id number] Tyrese Venegas, VIOLIN REPAIRER [address] [facility] [address] [place] [address] Yamil Logan, OT [address] [place] [address] Health Maintenance Due Date Last Done Comments COLONOSCOPY 2003 FIT TEST 2003 FOBT 2003 SIGMOIDOSCOPY 2003 VIRTUAL COLONOSCOPY 2003 COLOGUARD 05/23/2025 05/23/2022, 04/09/2019 COLORECTAL CANCER SCREENING 05/23/2025 BLOOD PRESSURE 05/28/2025 11/27/2024 INFLUENZA VACCINE (#1) 2025 Postp oned from 09/06/2024 (Patient Declines / Guardian Declines) DEPRESSION SCREENING 11/27/2025 11/27/2024 PNEUMOCOCCAL VACCINES (50+ years) (1 of 1 - PCV) 11/27/2025 Postponed from 01/25/2008 (Patient Declines / Guardian Declines) ZOSTER VACCINES (1 of 2) 11/27/2025 Pos tponed from 01/25/2008 (Patient Declines / Guardian Declines) MAMMOGRAM 07/09/2026 07/09/2024, 08/0 03/2022, 09/07/2022, Additional history exists SCREENING FOR DIABETES 11/28/2027 11/27/2024, 2022 PAP SMEAR 01/28/2028 01/27/2023, 01/19/2017 LIPID PANEL 11/27/2029 11/27/2024, 11/06, 11/21/2022, Additional history exists Adult Td,Tdap Booster 11/17/2030 11/17/2020, 016 RSV VACCINE (1 - 1-dose 75+ series) 2033 HEPATITIS C SCREENING Completed 11/08/2017 , 11/08/2017, 11/08/2017 SMOKING STATUS SCREENING (Once After 26 Yrs) Completed 11/27/2024 OSTEOPOROSIS SCREENING INITIAL (ONE-TIME) Completed 01/15/2025, 03/20/2018 HEPATITIS A VACCINES Aged Out No long er eligible based on patient's age to complete this topic HIB VACCINES Aged Out No longer eligi ble based on patient's age to complete this topic MENINGOCOCCAL VACCINES (ACWY) Aged Out No longer eligible based on patient's age to complete this topic MENINGOCOCCAL VACCINES (B) Aged Out N o longer eligible based on patient's age to complete this topic Medical Devices Not on file Procedures Procedure Name Priority Date/Time Associated Diagnosis Comments BD DXA SPINE AND HIP WITH FOREARM Routine 01/15/2025 3:58 PM EST Menopausal state Multinodular goiter LIPID PANEL Routine 11/27/2024 5:10 PM EDT Elevated lipoprotein(a) COMPREHENSIVE METABOLIC PANEL (CMP) Routine 11/27/2024 5:10 PM EDT Essential hypertension THYROID STIMULATING HORMONE (TSH) Routine 11/27/2024 5:10 PM EDT Multinodular goiter Essential hypertension CBC AND DIFFERENTIAL Routine 11/27/2024 5:10 PM EDT Essential hypertension HM MAMMOGRAPHY Routine 07/09/2024 10:40 AM EDT OUTSIDE COLOGUARD Routine 04/09/2019 HEPATITIS C ANTIBODY, QUALITATIVE Routine 11/08/2017 10:23 AM EDT Screening for STD (sexually transmitted disease) PAP SMEAR FOR RESULT ENTRY ONLY Routine 01/19/2017 from Last 3 Months or Most Recently Relevant to Health Maintenance Results * BD DXA SPINE AND HIP WITH FOREARM (01/15/2025 3:58 PM EST) Anatomical Region Laterality Modality Bone Density Bone Density 01/15/2025 3:37 PM EST Impressions 01/16/2025 12:27 PM EST Interpretation: Osteopenia. Narrative 01/16/2025 12:27 PM EST Referred By: TYRESE VENEGAS Indications: Postmenopausal Scanner: Baokim A with serial# of [id number] located at [facility] Bone Density Scan (DXA) 01/15/25 Details of prior DXA scans are available by clicking View Full Report BMD T- Z- Skeletal Site gm/cm2 score score BMD Change Since Prior Scan ------ ----- ----- PA Spine (L1-L4) 1.030 -0.20 1.70 -0.012 (stable) since 03/20/2018 Total Hip (Left) 0.943 0.00 1.30 -0.045 (-4.6%)* since 03/20/2018 Femoral Neck (Left) 0.722 -1.10 0.50 -0.068 (-8.6%)* since 03/20/2018 1/ Radius (Right) 0.595 -1.50 0.30 -0.073 (-10.9%)* since 03/20/2018 ------ ----- ----- * Denotes significant change when >= 0.022 g/cm2 for the spine, 0.027 g/cm2 for the total hip, 0.029 g/cm2 for the femoral neck, 0.023 g/cm2 for the forearm (1/3 radius). Interpretation: Osteopenia. Technical Quality: The PA Spine scan was of marginal quality because of scoliosis (which can decrease or increase BMD) and sclerosis or fracture (which increase BMD). FRAX: Based on FRAX(r) 3.6 ([place] White female), this patient's likelihood of hip fracture is 0.7% and major osteoporotic fracture is 8.5% over the next 10 years. The patient reported no risks of fracture. Reviewed By: Woodrow Lucas on 01/16/2025 12:27:05 Additional Information: -World Health Organization criteria classify adults based on lowest T-score at PA spine, hip or forearm: Normal (T-score >= -1.0), Osteopenia (T-score between -1 and -2.5), or Osteoporosis (T-score <= -2.5). At [facility], T-scores are compared to peak bone density of a young white gender matched reference population. - For premenopausal women and men under the age of 50, Z-scores (comparison to age, gender, and ethnicity matched reference population) are used: Above expected range for age (Z-score >= 2.0), Within expected range of age (Z-score 1.9 to -1.9), or Below expected range for age (Z-score <= -2.0). - The Bone Health and Osteoporosis Foundation recommends that treatment be considered in men aged more than 50 years and in postmenopausal women with ANY of the following: Prior hip or vertebral fractures; T-score of <= -2.5 at the PA spine or hip; or 10 year fracture probability by FRAX of >= 3% for the hip or >= 20% for major osteoporotic fracture. - The FRAX algorithm (https://www.rosaline.ac.uk/FRAX/tool.aspx) is designed to predict 10-year fracture risk in treatment-naive adults between the ages of 40 and 90. It is not intended to be used in those receiving pharmacologic osteoporosis treatment. - The TBS is derived from the texture of the DXA spine image and has been shown to be related to bone microarchitecture and fracture risk. This data provides information independent of BMD value. It adds to fracture risk assessment with a FRAX adjusted for TBS score. If your patient had a TBS and qualified for a FRAX score, the reported FRAX score has been adjusted for TBS. TBS Score Interpretation 1.350 and greater Normal bone microarchitecture 1.200 to 1.350 Partially degraded bone microarchitecture 1.200 and less Degraded bone microarchitecture - Including race/ethnicity in the generation of T- or Z-scores or in the FRAX calculation is complicated, and currently undergoing active review to ensure that we can give patients the best information on their risk of fracture. - Some prior studies may not be compatible with our comparison software. - Click on View Full Report to see subsequent pages with images and prior bone density results. Procedure Note Woodrow Lucas MD - 01/16/2025 Referred By: TYRESE VENEGAS Indications: Postmenopausal Scanner: Baokim A with serial# of [id number] located at [facility] Bone Density Scan (DXA) 01/15/25 Details of prior DXA scans are available by clicking View Full Report BMD T- Z- Skeletal Site gm/cm2 score score BMD Change Since Prior Scan ------ ----- PA Spine (L1-L4) 1.030 -0.20 1.70 -0.012 (stable) since03/20/2018 Total Hip (Left) 0.943 0.00 1.30 -0.045 (-4.6%)* since03/20/2018 Femoral Neck (Left) 0.722 -1.10 0.50 -0.068 (-8.6%)* since03/20/2018 1/3 Radius (Right) 0.595 -1.50 0.30 -0.073 (-10.9%)* since03/20/2018 ------ ----- * Denotes significant change when >= 0.022 g/cm2 for the spine, 0.027g/cm2 for the total hip, 0.029 g/cm2 for the femoral neck, 0.023 g/cm2 for the forearm (1/3 radius). Interpretation: Osteopenia. Technical Quality: The PA Spine scan was of marginal quality because of scoliosis (which can decrease or increase BMD) and sclerosis or fracture (which increase BMD). FRAX: Based on FRAX(r) 3.6 ([place] White female), this patient's likelihoodof hip fracture is 0.7% and major osteoporotic fracture is 8.5% over the next 10 years. The patient reported no risks of fracture. Reviewed By: Woodrow Lucas on 01/16/2025 12:27:05 Additional Information: -World Health Organization criteria classify adults based on lowestT-score at PA spine, hip or forearm: Normal (T-score >= -1.0), Osteopenia (T-score between -1 and -2.5), or Osteoporosis (T-score <= -2.5). At [facility], T-scores are compared to peak bone density of a young white gender matched reference population. - For premenopausal women and men under the age of 50, Z-scores(comparison to age, gender, and ethnicity matched reference population) are used:Above expected range for age (Z-score >= 2.0), Within expected range of age (Z-score 1.9 to -1.9), or Below expected range for age (Z-score <= -2.0). - The Bone Health and Osteoporosis Foundation recommends that treatment be considered in men aged more than 50 years and in postmenopausal women with ANY of the following: Prior hip or vertebral fractures; T-score of <= -2.5 at the PA spine or hip; or 10 year fracture probability by FRAX of >= 3%for the hip or >= 20% for major osteoporotic fracture. - The FRAX algorithm (https://www.rosaline.ac.uk/FRAX/tool.aspx) is designed to predict 10-year fracture risk in treatment-naive adultsbetween the ages of 40 and 90. It is not intended to be used in those receiving pharmacologic osteoporosis treatment. - The TBS is derived from the texture of the DXA spine image and has been shown to be related to bone microarchitecture and fracture risk. This data provides information independent of BMD value. It adds to fracture risk assessment with a FRAX adjusted for TBS score. If your patient had a TBSand qualified for a FRAX score, the reported FRAX score has been adjusted for TBS. TBS Score Interpretation 1.350 and greater Normal bone microarchitecture 1.200 to 1.350 Partially degraded bone microarchitecture 1.200 and less Degraded bone microarchitecture - Including race/ethnicity in the generation of T- or Z-scores or in the FRAX calculation is complicated, and currently undergoing active review to ensure that we can give patients the best information on their risk of fracture. - Some prior studies may not be compatible with our comparison software. - Click on View Full Report to see subsequent pages with images andprior bone density results. IMPRESSION: Interpretation: Osteopenia. us Tyrese Venegas VIOLIN REPAIRER IMG BD BONE DENSITY DE XA Final Result * Comprehensive metabolic panel (11/27/2024 5:10 PM EDT) SODIUM 139 133 - 146 mmol/L [facility] POTASSIUM 4.0 3.3 - 5.1 mmol/L [facility] CHLORIDE 102 96 - 108 mmol/L [facility] CO2 26 21 - 35 mmol/L [facility] BUN 13 6 - 19 mg/dL [facility] CREATININE 0.70 0.5 - 1.5 mg/dL [facility] GLUCOSE 88 70 - 99 mg/dL [facility] ALBUMIN 4.8 3.9 - 4.8 g/dL [facility] TOTAL PROTEIN 7.5 6.5 - 8.0 g/dL [facility] CALCIUM 9.8 8.4 - 10.3 mg/dL [facility] ALKALINE PHOSPHATASE 61 39 - 117 U/L [facility] TOTAL BILIRUBIN 0.4 0.0 - 1.2 mg/dL [facility] AST 25 0 - 37 U/L [facility] ALT 19 0 - 40 U/L [facility] GLOBULIN 2.7 1 - 4.8 g/dL [facility] EGFR 95 >59 mL/min/1.7 3m2 [facility] Comment:Estimated glomerular filtration rate calculated using the CKD-EPI refit equation. ANION GAP 15 10 - 20 mmol/L [facility] Blood 11/27/2024 5:10 PM EDT 11/27/2024 5:12 PM EDT us Tyrese Venegas [facility] LAB BLOOD BKR ORDERABL ES Final Result [address] [address] * CBC and differential (11/27/2024 5:10 PM EDT) WBC 5.23 4.00 - 11.00 K/uL [facility] RBC 4.78 4.00 - 5.20 M/uL [facility] HGB 14.1 12.0 - 16.0 g/dL [facility] HCT 43.8 36.0 - 46.0 % [facility] PLT 240 150 - 450 K/uL [facility] MCV 91.6 80.0 - 100.0 fL [facility] MCH 29.5 27.0 - 31.0 pg [facility] MCHC 32.2 32.0 - 36.0 g/dL [facility] RDW 13.0 11.5 - 14.5 % [facility] MPV 10.5 8.4 - 12.0 fL [facility] NRBC 0.00 0.00 /100 WBCs [facility] ABSOLUTE NRBC 0.00 0.00 K/uL [facility] DIFF METHOD Auto [facility] NEUTS 50.3 48.0 - 76.0 % [facility] LYMPHS 38.0 18.0 - 41.0 % [facility] MONOS 8.6 4.0 - 11.0 % [facility] EOS 2.3 0.0 - 5.0 % [facility] BASOS 0.6 0.0 - 1.5 % [facility] Granulocytes, immature (%) 0.2 0.0 - 0.9 % [facility] ABSOLUTE NEUTS 2.63 1.92 - 7.60 K/uL [facility] ABSOLUTE LYMPHS 1.99 0.72 - 4.10 K/uL [facility] ABSOLUTE MONOS 0.45 0.16 - 1.10 K/uL [facility] ABSOLUTE EOS 0.12 0.00 - 0.50 K/uL [facility] ABSOLUTE BASOS 0.03 0.00 - 0.15 K/uL [facility] Granulocytes, immature 0.01 0.00 - 0.09 K/uL [facility] Blood 11/27/2024 5:10 PM EDT 11/27/2024 5:12 PM EDT us Tyrese Venegas VIOLIN REPAIRER LAB BLOOD BKR ORDERABL ES Final Result [facility] [address] [place] [address] * TSH (11/27/2024 5:10 PM EDT) TSH 1.55 0.27 - 4.20 uIU/mL [facility] Blood 11/27/2024 5:10 PM EDT 11/27/2024 5:12 PM EDT us Tyrese Laverne Venegas KIKI LAB BLOOD BKR ORDERABL ES Final Result Performing Organization Address [facility] Co de Phone Number [address] [address] * (ABNORMAL) Lipid panel (11/27/2024 5:10 PM EDT) HDL 107 mg/dL [facility] Comment: Interpretation <40 mg/dL: Low HDL cholesterol (major risk factor for CHD) Greater than or equal to 60 mg/dL: High HDL cholesterol ( negative risk factor for CHD) HDL - cholesterol is affected by a number of factors, e.g. smoking, excerise, hormones, sex and age. CHOLESTEROL 238 0 - 240 mg/dL [facility] TRIGLYCERIDES 57 30 - 160 mg/dL [facility] LDL 120 50 - 129 mg/dL [facility] Comment: LDL levels in terms of risk for coronary heart disease: <100 mg/dL: Optimal 100-129 mg/dL: Near or above optimal 130-159 mg/dL: Borderline high 160-189 mg/dL: High >190 mg/dL: Very High CARDIAC RISK RATIO 2.2(L) 3.3 - 4.4 C [facility] Blood 11/27/2024 5:1 0 PM EDT 11/27/2024 5:12 PM EDT us Alfredito Villarreal MD LAB BLOOD BKR ORDERABLES Cami l Result Performing Organization Address City/[facility]/ZIP Co de Phone Number [address] [address] * HM MAMMOGRAPHY FOR RESULT ENTRY ONLY (07/09/2024 10:40 AM EDT) us Historical Provider HEALTH MAINTENANCE Final Result * OUTSIDE COLOGUARD (04/09/2019) Outside Cologuard Neg Comment:Repeat in 3 years Historical Provider HEALTH MAINTENANCE Final Result * Hepatitis C antibody, qualitative (11/08/2017 10:23 AM EDT) HCV Negative Negative [facility] Comment: This is a screening test and should be confirmed with molecular testing Blood 11/08/2017 10:2 3 AM EDT 11/08/2017 1:05 PM EDT Tyrese Venegas VIOLIN REPAIRER LAB BLOOD BKR ORDERABL ES Final Result [facility] [address] [place] [address] * PAP SMEAR FOR RESULT ENTRY ONLY (01/19/2017) HM Pap smear Normal/Neg ative HPV Historical Provider HEALTH MAINTENANCE Edited Result - Final from Last 3 Months or Most Recently Relevant to Health Maintenance Insurance [place] [id number] [employer] MEDEX SUPPLEMENT MEDICARE PART A & B [employer] MEDEX SUPPLEMENT MEDICARE PART A & B MEDICARE PART A & B MEDICARE PART A & B MEDEX SUPPLEMENT MEDICARE PART A & B MEDICARE PART A & B [employer] MEDEX SUPPLEMENT MEDICARE PART A & B [employer] MEDEX SUPPLEMENT MEDICARE PART A & B [employer] MEDEX SUPPLEMENT MEDICARE PART A & B [employer] MEDEX SUPPLEMENT [facility] Care Teams Tile Installer Relationship Specialty Start Date End Date Tyrese Venegas CNP [address] [place] [address] [address] [place] [address] [email or web address] PCP - General Internal Medicine 03/12/19 Additional Source Comments The information contained in this document represents components of the legal health record. It is not the complete legal health record.[facility]
--- OUTSIDE RECORDS SUMMARY | 2025-01-31 13:42 | XMS_ITS | Encounter Summary ---
Author Organization [facility] Address [address] [place] [address] Phone Care Team Providers Care Green Building Architect Name Role Phone Navya Boss MD Unavailable [phone] Cameron Clemente MD Unavailable Madelaine Lizama BROACHING MACHINE SET UP OPERATOR Primary Care Provider Savanna Gipson TRAIN STATION SERVER Primary Care Provider Fay Alfonso MD Unavailable [phone] Fay Alfonso MD Unavailable [phone] Encounter Details Date Type Department Care Team (Late st Contact Info) Description 03/31/2017 Procedure Pass [facility], Yordan [address]nd [address], [address] [place] [address] Social History Tobacco Use Types Packs/Day Years [...] Description 02/19/2025 11:30 AM EST Office Visit [facility] [address] [place] [phone] Savanna Gipson, KIKI 14 [facility] [address] [place] [phone] Yamil Logan, OT [address] [place] [address] documented as of this encounter Visit Diagnoses Not on filedocumented in this encounter Care Teams Green Building Architect Relationship Specialty Start Date End Date Madelaine Lizama NP [address] [place] [address] [place] [phone] [email or web address] PCP - General Internal Medicine 01/22/19 03/11/19 Savanna Gipson CNP [address] [place] [address] [place] [phone] PCP - General Internal Medicine 03/12/19 Navya Boss MD Internal Medicine 04/07/17 03/11/19 Cameron Clemente MD Nephrology 04/07/17 03/11/19 Fay Alfonso MD [address] [place] [address] [place] [phone] Insurance Assigned Provider 04/12/19 02/13/21 Fay Alfonso MD [address] [place] [address] [place] [phone] Insurance Assigned Provider 05/13/23 02/12/24 documented as of this encounter Additional Source Comments The information contained in this document represents components of the legal health record. It is not the complete legal health record.[facility]
--- OUTSIDE RECORDS SUMMARY | 2025-01-31 13:42 | XMS_ITS | Encounter Summary ---
Author Organization [facility] Address [address] [place] [address] Care Team Providers Care Wire Drawing Machine Tender Name Role Phone Matheus Mejia DMD Primary Care Provider Unava ilable Encounter Details Date Type Department Care Team [...] on filedocumented in this encounter Care Teams Wire Drawing Machine Tender Relationship Specialty Start Date End Date Matheus Mejia DMD PCP - General Dentist 12/03/21 documented as of this encounter
== END 2025-01-31 14:03 | disposition home or self-care (01) ==
LOC: HO.HKA 13:39
PROVIDERS: PCP Nurse Practitioner Adult Health; Visit Provider Internal Medicine Nephrology
DX: I10 Essential (primary) hypertension (principal)
CPT/HCPCS: 99214

== ENCOUNTER → 2025-01-31 13:38 | Outpatient (BNVA) | payer MEDICARE, SELFPAY | PROVIDERS: PCP Nurse Practitioner Adult Health; Visit Provider Internal Medicine Nephrology | DX: I10 Essential (primary) hypertension (principal) | CPT/HCPCS: 99212 ==